=== PATIENT | male | born 1940 | race Caucasian/White ===

== ENCOUNTER 2019-04-06 12:52 | Inpatient (IN) | payer BC, MEDICARE ==
[2019-04-06] MEDS ORDERED: MORPHINE SULFATE 2 MG/ML SYRINGE IVP STA (13:17)
--- NOTE | 2019-04-06 13:18 | ED ---
General Adult HPI - General Chief complaint: Fall Stated complaint: Hip injury Time Seen by Provider: 04/06/19 13:01 Source: patient Mode of arrival: EMS Limitations: physical limitation - History of Present Illness Initial comments: Patient is a 79-year-old male with a history of hypertension who presents with a chief complaint of left hip pain after falling from a barstool while trying to fix his curtains. This happened about noon. The patient states that he thinks he dislocated his hip. He has not had any previous surgeries, no history of hip replacements. Patient states he was unable to walk on it. He has good sensation and strength in the lower extremity. He states that he did hit his head on the tile but takes no blood thinners, did not lose consciousness, complains of no head or neck pain. He denies any other injuries. - Related Data Home Medications Medication Instructions Recorded Confirmed Ergocalciferol (Vitamin D2) 50,000 unit PO FRANK 04/06/19 04/06/19 [Vitamin D2] Losartan Potassium 100 mg PO DAILY 04/06/19 04/06/19 Allergies Allergy/AdvReac Type Severity Reaction Status Date / Time No Known Allergies Allergy Verified 04/06/19 14:06 Review of Systems ROS Statement: Those systems with pertinent positive or pertinent negative responses have been documented in the HPI. ROS Other: All systems not noted in ROS Statement are negative. Musculoskeletal: Reports: arthralgia Past Medical History - Past Family History Father Family Medical History: No Reported History General Exam Limitations: physical limitation General appearance: alert, in no apparent distress Head exam: Present: atraumatic, normocephalic Eye exam: Present: normal appearance ENT exam: Present: normal exam Neck exam: Present: normal inspection Respiratory exam: Present: normal lung sounds bilaterally. Absent: respiratory distress, wheezes Cardiovascular Exam: Present: regular rate, normal rhythm GI/Abdominal exam: Present: soft. Absent: distended, tenderness Rectal exam: Present: deferred Extremities exam: Present: other (Left leg is shortened and externally rotated. Patient has palpable PT pulses bilaterally. Strength and sensation are intact). Absent: full ROM Back exam: Present: normal inspection Neurological exam: Present: alert, oriented X3 Psychiatric exam: Present: normal affect, normal mood Skin exam: Present: warm, dry, intact Course Vital Signs 04/06/19 04/06/19 04/06/19 12:53 15:00 15:40 Temperature 97.8 F 97.9 F 98.7 F Pulse Rate 89 88 Pulse Rate [ 87 Left] Respiratory 16 16 18 Rate Blood Pressure 150/73 144/87 Blood Pressure 161/88 [Left Arm] O2 Sat by Pulse 99 99 Oximetry 04/06/19 16:26 Temperature Pulse Rate 81 Pulse Rate [ Left] Respiratory 18 Rate Blood Pressure 124/78 Blood Pressure [Left Arm] O2 Sat by Pulse 98 Oximetry Medical Decision Making - Medical Decision Making Patient presents with a chief complaint left hip injury. On initial evaluation, vitals are stable, patient is in no acute distress. Exam concerning for a left hip fracture. He'll be evaluated with surgical clearance labs, EKG, x-rays of the chest, pelvis, and left hip. EKG performed at 1330 shows normal sinus rhythm with left axis deviation. Ventricular rate is 87 bpm, no acute signs of ischemia, segment otherwise within normal limits. 2:42 PM Laboratory evaluation of this patient is unremarkable except for a creatinine of 1.69. Case discussed with Dr. Demarco given x-ray findings of an intertrochante danielle fracture of the left femur. Dr. Demarco accepts admission to his service with medicine on consult for medical clearance. 2-D echo ordered. Patient updated on the results, he was agreeable with the care plan. - Lab Data Result diagrams: 04/06/19 13:28 04/06/19 13:28 Lab Results 04/06/19 04/06/19 04/06/19 Range/Units 13:28 13:28 13:28 WBC 14.3 H (3.8-10.6) k/uL RBC 5.12 (4.30-5.90) m/uL Hgb 14.8 (13.0-17.5) gm/dL Hct 46.3 (39.0-53.0) % MCV 90.5 (80.0-100.0) fL MCH 28.9 (25.0-35.0) pg MCHC 32.0 (31.0-37.0) g/dL RDW 14.6 (11.5-15.5) % Plt Count 226 (150-450) k/uL Neutrophils % 82 % Lymphocytes % 12 % Monocytes % 4 % Eosinophils % 2 % Basophils % 0 % Neutrophils # 11.7 H (1.3-7.7) k/uL Lymphocytes # 1.7 (1.0-4.8) k/uL Monocytes # 0.5 (0-1.0) k/uL Eosinophils # 0.2 (0-0.7) k/uL Basophils # 0.0 (0-0.2) k/uL PT 10.5 (9.0-12.0) sec INR 1.0 (<1.2) Sodium 137 (137-145) mmol/L Potassium 4.3 (3.5-5.1) mmol/L Chloride 105 (98-107) mmol/L Carbon Dioxide 21 L (22-30) mmol/L Anion Gap 11 mmol/L BUN 25 H (9-20) mg/dL Creatinine 1.69 H (0.66-1.25) mg/dL Est GFR (CKD-EPI)AfAm 45 (>60 ml/min/1.73 sqM) Est GFR (CKD-EPI)NonAf 39 (>60 ml/min/1.73 sqM) Glucose 133 H (74-99) mg/dL Calcium 8.8 (8.4-10.2) mg/dL Troponin I (0.000-0.034) ng/mL NT-Pro-B Natriuret Pep pg/mL 04/06/19 04/06/19 Range/Units 13:28 13:28 WBC (3.8-10.6) k/uL RBC (4.30-5.90) m/uL Hgb (13.0-17.5) gm/dL Hct (39.0-53.0) % MCV (80.0-100.0) fL MCH (25.0-35.0) pg MCHC (31.0-37.0) g/dL RDW (11.5-15.5) % Plt Count (150-450) k/uL Neutrophils % % Lymphocytes % % Monocytes % % Eosinophils % % Basophils % % Neutrophils # (1.3-7.7) k/uL Lymphocytes # (1.0-4.8) k/uL Monocytes # (0-1.0) k/uL Eosinophils # (0-0.7) k/uL Basophils # (0-0.2) k/uL PT (9.0-12.0) sec INR (<1.2) Sodium (137-145) mmol/L Potassium (3.5-5.1) mmol/L Chloride (98-107) mmol/L Carbon Dioxide (22-30) mmol/L Anion Gap mmol/L BUN (9-20) mg/dL Creatinine (0.66-1.25) mg/dL Est GFR (CKD-EPI)AfAm (>60 ml/min/1.73 sqM) Est GFR (CKD-EPI)NonAf (>60 ml/min/1.73 sqM) Glucose (74-99) mg/dL Calcium (8.4-10.2) mg/dL Troponin I 0.015 (0.000-0.034) ng/mL NT-Pro-B Natriuret Pep 232 pg/mL Disposition Clinical Impression: Hip fracture Disposition: ADMITTED IP TO THIS HOSP Condition: Good Is patient prescribed a controlled substance at d/c from ED?: No Decision to Admit Reason: Admit from EC - Out of Hospital Transfer - Req. Specs Out of Hospital Transfer - Requested Specifics: Other Non-Acute
[2019-04-06 13:42] LABS: Basophils % (A) 0 %; Eosinophils # (A) 0.2 k/uL (0-0.7); Eosinophils % (A) 2 %; HCT 46.3 % (39.0-53.0); HGB 14.8 gm/dL (13.0-17.5); Lymphocytes # (A) 1.7 k/uL (1.0-4.8); Lymphocytes % (A) 12 %; MCH 28.9 pg (25.0-35.0); MCV 90.5 fL (80.0-100.0); Mean Platelet Volume 7.7; Monocytes # (A) 0.5 k/uL (0-1.0); Monocytes % (A) 4 %; Neutrophils # (A) 11.7 k/uL (1.3-7.7); Neutrophils % (A) 82 %; Platelet Count 226 k/uL (150-450); RBC 5.12 m/uL (4.30-5.90); RDW 14.6 % (11.5-15.5); WBC 14.3 k/uL (3.8-10.6)
[2019-04-06 13:49] LABS: Calcium 8.8 mg/dL (8.4-10.2); Potassium 4.3 mmol/L (3.5-5.1)
[2019-04-06 13:51] LABS: Prothrombin Time 10.5 sec (9.0-12.0)
--- NOTE | 2019-04-06 14:29 | XR ---
EXAMINATION TYPE: XR Hip LT and AP Pelvis , 3 VIEWS DATE OF EXAM ORDERED: 04/06/2019 HISTORY: Pain. COMPARISON: None. FINDINGS: There is a trochanteric fracture of the left hip with mild foreshortening. There is been a vulsion of the lesser trochanter. No other pelvic fracture is seen. IMPRESSION: MILDLY FORESHORTENED AND DISPLACED INTERTROCHANTERIC FRACTURE OF THE LEFT HIP. CODE A: INITIAL ENCOUNTER FOR CLOSED FRACTURE.
--- NOTE | 2019-04-06 14:30 | XR ---
EXAMINATION TYPE: XR chest 1V DATE OF EXAM: 04/06/2019 HISTORY: Pain. REFERENCE: NONE. FINDINGS: The heart is enlarged. There is apparent elevation right hemidiaphragm. There is vascular c ongestion without alix edema. Pleural spaces appear clear. IMPRESSION: CARDIOMEGALY AND VASCULAR CONGESTION.
[2019-04-06] MEDS ORDERED: NALOXONE 0.4 MG/ML 1 ML VIAL IV PRN (14:36)
[2019-04-06] MEDS ORDERED: MORPHINE SULFATE 4 MG/ML SYRINGE IV PRN (14:36)
[2019-04-06] MEDS: HYDROcodone/APAP 5-325MG 1 EACH TAB PO PRN (17:14)
--- NOTE | 2019-04-06 20:44 | HP ---
HISTORY AND PHYSICAL DATE OF DICTATION: 04/06/2019. REASON FOR ADMISSION: Left intertrochanteric hip fracture. HISTORY: Mr. Gilmore is a very pleasant 79-year-old male who earlier today was doing some work at his house. He was up on elevated surface and he fell onto his left hip. He had immediate pain in the left hip. Brought to [facility] via ambulance. Workup including x-rays revealed a left displaced intertrochanteric hip fracture. I was notified by the emergency department. He was admitted to my service. MEDICAL HISTORY: Hypertension. SURGICAL HISTORY: Negative. ALLERGIES: No known drug allergies. SOCIAL HISTORY: He is an independent ambulator. Lives with his at home. Denies nicotine or alcohol use. PHYSICAL EXAMINATION: T-max 99.3, blood pressure 148/85, pulse 106, white count 14.3, hemoglobin 14.8, platelets of 226, and his INR is 1.0. He has no pain with palpation range of motion of all long bones and joints with the exception of the left hip. The left hip is flexed and externally rotated. There is no pain with palpation of the left distal femur, knee, tibia, fibula, ankle, or foot. He has intact flexion-extension inversion and eversion of the left foot. He has intact lateral medial plantar and first dorsal webspace sensation in the left foot. He has a palpable posterior tibialis pulse and brisk capillary refill in all digits. X-RAYS: AP pelvis and AP and lateral view left hip shows a 4 part displaced intertrochanteric hip fracture. IMPRESSION: Left displaced intertrochanteric hip fracture. RECOMMENDATIONS: I had a long discussion with Mr. Gilmore. He is a very active independent ambulator. Recommendation was for intramedullary hip screw fixation for his left intertrochanteric hip fracture. He is very healthy. We did have the medical service see him for clearance. We anticipate proceeding with operative intervention for his left hip fracture tomorrow morning. The risks of procedure were discussed in detail. These risks include, but are not limited to risk of infection, nerve damage, bleeding, pain, and a small risk of deep vein thrombosis which could lead to fatal pulmonary embolism. Further risks include periprosthetic fracture and failure of the fracture to heal. All of Mr. Gilmore questions with regards to the procedure were answered to his satisfaction. Appropriate informed consent was obtained. We will keep him n.p.o. after midnight tonight. We will plan to go forward with intramedullary hip screw fixation for his fracture tomorrow morning. MMODL / IJN: [id number] /
--- NOTE | 2019-04-07 01:50 | P.CONS ---
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 Patient was climbing down the caraballo s tool after fixing the curtain and suddenly lost balance and fell on his left hip. Since then patient has been having worsening pain and unable to ambulate without support. Patient denied any dizziness or lightheadedness. No chest pain or shortness of breath. No history of syncope. X-ray of the left hip showed intertrochanteric fracture displaced. Internal medicine service was consulted for medical clearance. BUN 25, creatinine 1.69, WBC 14.5 BNP 232, troponin 2 negative Chest x-ray showed cardiomegaly and mild pulmonary vascular congestion. Review of Systems Constitutional: Patient denies any fever or chills . No generalized weakness or weight loss. Abdomen: Patient denied nausea vomiting and diarrhea and abdominal pain. Cardiovascular: Patient denies any chest pain or short of breath no palpitations. Respiratory: patient denied any cough is from production. No shortness of breath Neurologic: Patient denied any numbness or tingling headache. Musculoskeletal: Patient denies any complaints of joint swelling or deformity. Left hip pain Skin: Negative Psychiatric: Negative Endocrine: No heat or cold intolerance. No recent weight gain. Genitourinary: No dysuria or hematuria. All other 14 point ROS negative except the above Past Medical History Past Medical History: CVA/TIA Additional Past Medical History / Comment(s): Mini-stroke 2008, no complications History of Any Multi-Drug Resistant Organisms: None Reported Past Surgical History: No Surgical Hx Reported Past Anesthesia/Blood Transfusion Reactions: No Reported Reaction Past Psychological History: No Psychological Hx Reported Smoking Status: Former smoker - Past Family History Father Family Medical History: No Reported History Medications and Allergies Home Medications Medication Instructions Recorded Confirmed Type Ergocalciferol (Vitamin D2) 50,000 unit PO FRANK 04/06/19 04/06/19 History [Vitamin D2] Losartan Potassium 100 mg PO DAILY 04/06/19 04/06/19 History Allergies Allergy/AdvReac Type Severity Reaction Status Date / Time No Known Allergies Allergy Verified 04/06/19 14:06 Physical Exam Vitals: Vital Signs Temp Pulse Pulse Resp BP BP Pulse Ox 04/06/19 16:26 81 18 124/78 98 04/06/19 15:40 98.7 F 88 18 144/87 04/06/19 15:00 97.9 F 87 16 161/88 99 04/06/19 12:53 97.8 F 89 16 150/73 99 Intake and Output 04/06/19 04/06/19 04/06/19 06:59 14:59 22:59 Other: Weight 88.451 kg PHYSICAL EXAMINATION: Patient is lying in the bed comfortably, no acute distress, awake alert and oriented.. HEENT: Normocephalic. Neck is supple. Pupils reactive. Nostrils clear. Oral cavity is moist. Ears reveal no drainage. Neck reveals no JVD, carotid bruits, or thyromegaly. CHEST EXAMINATION: Trachea is central. Symmetrical expansion. Lung holloway clear to auscultation and percussion. CARDIAC: Normal S1, S2 with no gallops. No murmurs . Systolic murmur present. ABDOMEN: Soft. Bowel sounds normal. No organomegaly. No abdominal bruits. Extremities: reveal no edema. No clubbing or cyanosis Neurologically awake, alert, oriented x3 with well-coordinated movements. No focal deficits noted Skin: No rash or skin lesions. Psychiatric: Coperative. Nonsuicidal Musculoskeletal: No joint swelling or deformity. Tenderness of the left trochanter. Results CBC & Chem 7: 04/06/19 13:28 04/06/19 13:28 Labs: Abnormal Lab Results - Last 24 Hours (Table) 04/06/19 04/06/19 Range/Units 13:28 13:28 WBC 14.3 H (3.8-10.6) k/uL Neutrophils # 11.7 H (1.3-7.7) k/uL Carbon Dioxide 21 L (22-30) mmol/L BUN 25 H (9-20) mg/dL Creatinine 1.69 H (0.66-1.25) mg/dL Glucose 133 H (74-99) mg/dL Assessment and Plan Assessment: Left intertrochanteric displaced fracture status post mechanical fall. Mild pulmonary vascular congestion. BNP is not elevated no leg swelling. Unlikely CHF. Hypertension fairly controlled. Will hold losartan due to elevated creatinine level. Acute on Chronic kidney disease stage III. Baseline creatinine not known. History of CVA/TIA with no residual weakness. Vitamin D deficiency DVT prophylaxis Plan: Patient will be continued on telemetry monitoring. 2-D echocardiogram was ordered to assess left ventricular systolic function and for any valvular abnormalities.. Patient will be started on perioperative beta blockers. Gentle hydration and follow closely. Patient does not have any active symptoms of chest pain or shortness of breath. Repeat CBC and BMP was ordered. Patient is at low to intermediate risk for moderate risk orthopedic surgery. We will continue to follow. Thank you for your consult. Time with Patient: Greater than 30
[2019-04-07] MEDS: METOPROLOL TARTRATE 25 MG TAB PO SCH ×2 (06:47→22:18)
[2019-04-07 07:30] LABS: Basophils % (A) 0 %; Eosinophils # (A) 0.1 k/uL (0-0.7); Eosinophils % (A) 1 %; HCT 42.6 % (39.0-53.0); HGB 13.6 gm/dL (13.0-17.5); Lymphocytes % (A) 9 %; MCH 29.1 pg (25.0-35.0); MCHC 31.9 g/dL (31.0-37.0); MCV 91.4 fL (80.0-100.0); Mean Platelet Volume 6.6; Monocytes # (A) 0.8 k/uL (0-1.0); Monocytes % (A) 7 %; Neutrophils # (A) 9.6 k/uL (1.3-7.7); Neutrophils % (A) 82 %; Platelet Count 186 k/uL (150-450); RBC 4.66 m/uL (4.30-5.90); RDW 14.1 % (11.5-15.5); WBC 11.7 k/uL (3.8-10.6)
[2019-04-07 07:43] LABS: Calcium 8.4 mg/dL (8.4-10.2); Potassium 4.3 mmol/L (3.5-5.1)
--- NOTE | 2019-04-07 08:11 | ECHOF ---
Referral Reason:Pre-operative MEASUREMENTS -------- HEIGHT: 180.3 cm WEIGHT: 88.5 kg BP: RVIDd: 2.8 cm (< 3.3) IVSd: 1.4 cm (0.6 - 1.1) LVIDd: 3.6 cm (3.9 - 5.3) LVPWd: 1.2 cm (0.6 - 1.1) IVSs: 1.6 cm LVIDs: 3.0 cm LVPWs: 1.7 cm LA Diam: 3.7 cm (2.7 - 3.8) Ao Diam: 3.2 cm (2.0 - 3.7) MV EXCURSION: 18.547 mm (> 18.000) MV EF SLOPE: 52 mm/s (70 - 150) EPSS: 0.6 cm MV E Jose F: 1.00 m/s MV DecT: 228 ms MV A Jose F: 0.78 m/s MV E/A Ratio: 1.29 AV maxP.06 mmHg AV meanP.34 mmHg FINDINGS -------- Sinus rhythm. This was a technically difficult study with suboptimal views. The left ventricular size is normal. There is moderate concentric left ventricular hypertrophy. O verall left ventricular systolic function is mildly impaired with, an EF between 45 - 50 %. The right ventricle is normal in size. The left atrium is normal in size. The right atrium is normal in size. Lumason used Interatrial and interventricular septum intact. There is moderate aortic valve sclerosis. There is moderate aortic stenosis present. Peak/mean gr adient across the Aortic Valve is 52.06mmHg / 34.34mmHg. The mitral valve is normal. The tricuspid valve was not well visualized. There is no pulmonic regurgitation present. The aortic root size is normal. IVC Not well visulized. There is no pericardial effusion. CONCLUSIONS -------- 1. Sinus rhythm. 2. This was a technically difficult study with suboptimal views. 3. The left ventricular size is normal. 4. There is moderate concentric left ventricular hypertrophy. 5. Overall left ventricular systolic function is mildly impaired with, an EF between 45 - 50 %. 6. The right ventricle is normal in size. 7. The left atrium is normal in size. 8. The right atrium is normal in size. 9. Lumason used 10. Interatrial and interventricular septum intact. 11. There is moderate aortic valve sclerosis. 12. There is moderate aortic stenosis present. 13. Peak/mean gradient across the Aortic Valve is 52.06mmHg / 34.34mmHg. 14. The mitral valve is normal. 15. The tricuspid valve was not well visualized. 16. There is no pulmonic regurgitation present. 17. The aortic root size is normal. 18. IVC Not well visulized. 19. There is no pericardial effusion. PROJECT ARCHIVIST: Amada Lassiter RDCS
[2019-04-07] MEDS ORDERED: SODIUM CHLORIDE 0.9% 1,000 ML IV ONE (10:07)
[2019-04-07] MEDS ORDERED: GLYCOPYRROLATE 0.2 MG/ML 2 ML VIAL ONE (10:07)
[2019-04-07] MEDS ORDERED: PHENYLEPHRINE-0.9% NACL SYG 1 MG/10 ML SYRINGE ONE (10:07)
[2019-04-07] MEDS ORDERED: LIDOCAINE 1% INJ 10MG/ML (20 ML MDV) ONE (10:07)
[2019-04-07] MEDS ORDERED: PROPOFOL 10 MG/ML 20 ML VIAL IV ONE (10:07)
[2019-04-07] MEDS ORDERED: NEOSTIGMINE 1 MG/ML 10 ML VIAL ONE (10:07)
[2019-04-07] MEDS ORDERED: SUCCINYLCHOLINE CHLORIDE 100 MG/5 ML SYR IV ONE (10:07)
[2019-04-07] MEDS ORDERED: ROCURONIUM BROMIDE 10 MG/ML 10 ML VIAL IV ONE (10:07)
[2019-04-07] MEDS ORDERED: KETAMINE 10 MG/ML 20 ML VIAL ONE (10:07)
[2019-04-07] MEDS ORDERED: fentaNYL (PF) 50 MCG/ML 2 ML AMP ONE (10:07)
[2019-04-07] MEDS ORDERED: MIDAZOLAM 2 MG/2 ML VIAL ONE (10:07)
--- NOTE | 2019-04-07 11:23 | FL ---
FLUOROSCOPY 136 seconds of fluoroscopy time were utilized during I am pinning of the left hip. 2 images document the procedure.
[2019-04-07] MEDS ORDERED: HYDROmorphone 0.5 MG/0.5 ML SYRINGE IVP PRN ×3 (11:34)
[2019-04-07] MEDS ORDERED: ONDANSETRON 4 MG/2 ML VIAL IVP PRN (11:34)
[2019-04-07] MEDS ORDERED: hydrOXYzine PAMOATE 25 MG CAP PO PRN (11:34)
[2019-04-07] MEDS: HYDROmorphone 1 MG/ML 1 ML SYRINGE IVP ONE ×2 (11:36→11:45)
--- NOTE | 2019-04-07 12:51 | OP ---
OPERATIVE REPORT DATE OF PROCEDURE: 04/07/2019. PRE-PROCEDURE DIAGNOSIS: Left displaced intertrochanteric hip fracture. POSTOPERATIVE DIAGNOSIS: Left displaced intertrochanteric hip fracture. PROCEDURE PERFORMED: Left intramedullary hip screw fixation for left intertrochanteric hip fracture. SURGEON: Chele Demarco M.D. ANESTHESIA: General endotracheal. ESTIMATED BLOOD LOSS: 100 mL. TOURNIQUET: None. DRAINS: None. COMPLICATIONS: None apparent. DISPOSITION: Postanesthesia care unit. INDICATIONS: Pato is a very pleasant 79-year-old male who fell off of a stool yesterday onto his left hip. He had sustained a left intertrochanteric hip fracture. Recommendation was for intramedullary hip screw fixation for his intertrochanteric hip fracture. He would like to proceed with operative intervention. The risks were explained to the patient which include, but are not limited to risk of infection, nerve damage, bleeding, pain, and a small risk of deep vein thrombosis which could lead to fatal pulmonary embolism. Further risks include lack of healing of the fracture or periimplant fracture. All of Pato's questions with regards to the procedure were answered to his satisfaction. Appropriate informed consent was obtained. DESCRIPTION OF THE PROCEDURE: Patient identified in preoperative holding area. Surgical site was marked by both the patient and myself. He was given 2 g of Ancef IV for prophylactic purposes. He was then transported to the operative suite. He was placed supine on the operative table. General anesthetic was then administered and dosed per the anesthesia without apparent complication. He was then placed onto the fracture table well-padded in preparation for surgery. The fracture was then reduced with traction and rotation. The reduction was confirmed with fluoroscopic imaging. The patient's left lower extremity was then prepped and draped in usual sterile fashion. Standard surgical pause undertaken to ensure that we were operating the correct site and that appropriate preop antibiotics were given. All staff were in agreement we proceeded. Fluoroscopy was then brought in. Approximate 3 cm incision from the tip of the greater trochanter proximally in line with the femoral shaft was then made with a 10 blade scalpel. Dissection carried down sharply to the tensor fascia. The tensor fascia was then incised in line with the incision. The threaded guide pin was then placed on the medial aspect of the greater trochanter and then advanced down the center of the femoral shaft. Again this was confirmed with fluoroscopic imaging. I then over reamed to the level of the lesser trochanter to allow for acceptance of the intramedullary nail. The threaded guide pin was then replaced with a ball-tip guidewire. Again placement in the intramedullary canal was confirmed with fluoroscopic imaging. I then proceeded to ream the femoral canal, started with a 9 mm reamer and incrementally increased up to a 13 mm reamer. I then had the electroplating sales representative open a Lilly 11 mm x 180 mm x 125 degree gamma nail. This was then assembled on the back table by the director surgical. The Gamma nail was then inserted over the ball-tipped guidewire. The ball-tipped guidewire was removed. I then proceeded with placement of the hip screw. A 2nd small incision was then made on the lateral thigh. The threaded guide pin was then advanced into the center of the end of the deep into the center of the femoral head on both AP and lateral views. The tip-apex distance was appropriate. I then measured for length. The reamer was set to 105 mm. I then over-reamed the threaded guide pin under fluoroscopic imaging. I then had the electroplating sales representative open 105 mm x 10 mm partially-threaded hip screw. This was then advanced over the threaded guide pin deep into the center femoral head. He had very good bone quality. The hip screw had excellent purchase in the femoral head bone. The tip-apex distance was appropriate. I then placed a set screw. The set screw was then tightened down fully and then backed off 1/4 turn to allow for compression of the fracture site. I then proceeded to place the distal locking screw. A third small stab incision was made on the lateral thigh. A 5 mm x 37.5 mm locking screw was then placed through the nail statically through the distal hole of the nail. Again, its placement was confirmed through the nail and length was confirmed with fluoroscopic imaging. At this point, final images were taken. The nail was within the intramedullary canal. The distal screw was of appropriate length and through the nail. The hip screw was placed deep into the center of the femoral head on both AP and lateral views. The tip- apex distance was appropriate. At this point time no further work was deemed necessary. The insertion jig was removed. The wounds were thoroughly irrigated with sterile saline solution with antibiotic added. The tensor fascia was closed with 0-Vicryl interrupted suture. The subcutaneous tissue was closed with 2-0 Vicryl interrupted suture. The skin was closed with stainless steel devin. Sterile compressive dressing was then applied. All sponge and needle counts were deemed correct prior to closure. The patient tolerated the procedure without apparent complication. He was transferred to the recovery room in stable condition. NARAYAN / VIRIDIANA: [id number] /
[2019-04-07] MEDS: LACTATED RINGERS 1,000 ML IV SCH ×2 (13:28→22:41)
[2019-04-07] MEDS: ceFAZolin IN SWFI 2 GM/20 ML SYRINGE IVP SCH (15:37)
[2019-04-07] MEDS: HYDROcodone/APAP 5-325MG 1 EACH TAB PO PRN ×2 (18:14→22:17)
[2019-04-07] MEDS: SENNOSIDES-DOCUSATE SODIUM 1 EACH TAB PO SCH (22:18)
[2019-04-08] MEDS: ceFAZolin IN SWFI 2 GM/20 ML SYRINGE IVP SCH (00:02)
--- NOTE | 2019-04-08 00:05 | P.PN ---
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 Patient was climbing down the caraballo stool after fixing the curtain and suddenly lost balance and fell on his left hip. Since then patient has been having worsening pain and unable to ambulate without support. Patient denied any dizziness or lightheadedness. No chest pain or shortness of breath. No history of syncope. X-ray of the left hip showed intertrochanteric fracture displaced. Internal medicine service was consulted for medical clearance. BUN 25, creatinine 1.69, WBC 14.5 BNP 232, troponin 2 negative Chest x-ray showed cardiomegaly and mild pulmonary vascular congestion. 04/07/2019 Patient is status post left intramedullary hip screw fixation for left intertrochanteric fracture. Postoperative day 0 Currently blood pressure is controlled. No worsening pain. No chest pain or shortness of breath. 2-D echocardiogram showed ejection fraction 40-45% with mildly reduced systolic function. Moderate aortic sclerosis and moderate aortic stenosis. Patient will be continued on metoprolol and losartan. Creatinine level slightly improved to 1.58. Patient does have underlying CK D stage III. Patient will need follow-up with cardiology and nephrology as an outpatient. Current medications reviewed. Objective - Vital Signs Vital signs: Vital Signs Temp 98 F 04/07/19 12:30 Pulse 99 04/07/19 14:00 Resp 14 04/07/19 12:30 BP 128/83 04/07/19 14:00 Pulse Ox 90 L 04/07/19 12:30 Intake & Output 04/06/19 04/07/19 04/07/19 18:59 06:59 18:59 Intake Total 807 403 0381 Output Total 700 100 Balance 240 -450 1250 Weight 88.451 kg Intake: IV 650 Intake, IV Titration 700 Amount Lactated Ringers 1,000 ml 300 @ 100 mls/hr IV .Q10H [facility] Rx#:[id number] Sodium Chloride 0.9% 1, 400 000 ml @ 0 mls/hr IV .STK -MED ONE Rx#:[id number] Oral 240 250 Output: Urine 700 Estimated Blood Loss 100 Other: Voiding Method Urinal Urinal # Voids 1 - Exam PHYSICAL EXAMINATION: Patient is lying in the bed comfortably, no acute distress, awake alert and oriented.. HEENT: Normocephalic. Neck is supple. Pupils reactive. Nostrils clear. Oral cavity is moist. Ears reveal no drainage. Neck reveals no JVD, carotid bruits, or thyromegaly. CHEST EXAMINATION: Trachea is central. Symmetrical expansion. Lung holloway clear to auscultation and percussion. CARDIAC: Normal S1, S2 with no gallops. No murmurs . Systolic murmur present. ABDOMEN: Soft. Bowel sounds normal. No organomegaly. No abdominal bruits. Extremities: reveal no edema. No clubbing or cyanosis Neurologically awake, alert, oriented x3 with well-coordinated movements. No focal deficits noted Skin: No rash or skin lesions. Psychiatric: Coperative. Nonsuicidal Musculoskeletal: No joint swelling or deformity. Tenderness of the left trochanter. - Labs CBC & Chem 7: 04/07/19 06:51 04/07/19 06:51 Labs: Abnormal Lab Results - Last 24 Hours (Table) 04/07/19 04/07/19 Range/Units 06:51 06:51 WBC 11.7 H (3.8-10.6) k/uL Neutrophils # 9.6 H (1.3-7.7) k/uL Sodium 136 L (137-145) mmol/L Carbon Dioxide 21 L (22-30) mmol/L BUN 25 H (9-20) mg/dL Creatinine 1.58 H (0.66-1.25) mg/dL Glucose 127 H (74-99) mg/dL Assessment and Plan Assessment: Left intertrochanteric displaced fracture status post mechanical fall. Status post intramedullary hip screw fixation. Mild pulmonary vascular congestion. BNP is not elevated no leg swelling. Unlikely CHF. Chronic CHF with systolic dysfunction. Hypertension fairly controlled. Will hold losartan due to elevated creatinine level. Acute on Chronic kidney disease stage III. Baseline creatinine not known. History of CVA/TIA with no residual weakness. Vitamin D deficiency DVT prophylaxis Plan: Patient will be continued on telemetry monitoring. 2-D echocardiogram was ordered to assess left ventricular systolic function and for any valvular abnormalities was reviewed... Patient will be started on perioperative beta blockers. Gentle hydration and follow closely. Patient does not have any active symptoms of chest pain or shortness of breath. Repeat CBC and BMP was ordered. Patient is at low to intermediate risk for moderate risk orthopedic surgery. We will continue to follow. Thank you for your consult. Time with Patient: Greater than 30
[2019-04-08] MEDS: HYDROcodone/APAP 5-325MG 1 EACH TAB PO PRN ×3 (02:37→20:41)
[2019-04-08 03:25] LABS: Glucose,Whole Blood 157 mg/dL (75-99)
[2019-04-08] MEDS: LACTATED RINGERS 1,000 ML IV SCH (09:13)
[2019-04-08] MEDS: LOSARTAN 50 MG TAB PO SCH (09:14)
[2019-04-08] MEDS: ASPIRIN 325 MG TAB PO SCH ×2 (09:14→20:41)
[2019-04-08] MEDS: METOPROLOL TARTRATE 25 MG TAB PO SCH ×2 (09:14→20:41)
[2019-04-08 09:29] LABS: Basophils % (A) 0 %; Eosinophils % (A) 0 %; HCT 37.3 % (39.0-53.0); HGB 11.8 gm/dL (13.0-17.5); Lymphocytes # (A) 0.8 k/uL (1.0-4.8); Lymphocytes % (A) 6 %; MCH 28.9 pg (25.0-35.0); MCHC 31.8 g/dL (31.0-37.0); MCV 91.1 fL (80.0-100.0); Mean Platelet Volume 8.2; Monocytes # (A) 0.6 k/uL (0-1.0); Monocytes % (A) 4 %; Neutrophils # (A) 13.1 k/uL (1.3-7.7); Neutrophils % (A) 89 %; Platelet Count 153 k/uL (150-450); RBC 4.09 m/uL (4.30-5.90); WBC 14.7 k/uL (3.8-10.6)
--- NOTE | 2019-04-08 12:29 | P.PN ---
Subjective Progress Note Date: 04/08/19 Principal diagnosis: Left IT fracture Patient is seen at bedside this morning. He is postop day #1 from IM hip screw/IT nail for left hip fracture. He has pain at the surgical site as expected but denies any new complaints. He denies numbness, tingling or calf pain. Review of systems is negative for fever, chills, chest pain, shortness of breath or other Objective - Vital Signs Vital signs: Vital Signs Temp 98.8 F 04/08/19 07:00 Pulse 99 04/08/19 07:00 Resp 14 04/08/19 07:00 BP 113/70 04/08/19 07:00 Pulse Ox 96 04/08/19 07:00 Intake & Output 04/07/19 04/08/19 04/08/19 18:59 06:59 18:59 Intake Total 1350 236 Output Total 350 395 350 Balance 1000 -395 -114 Intake: IV 650 Intake, IV Titration 700 Amount Lactated Ringers 1,000 ml 300 @ 50 mls/hr IV .Q20H [facility] Rx#:[id number] Sodium Chloride 0.9% 1, 400 000 ml @ 0 mls/hr IV .STK -MED ONE Rx#:[id number] Oral 236 Output: Urine 250 395 350 Estimated Blood Loss 100 Other: Voiding Method Urinal # Voids 1 1 1 - Exam Inspection reveals a benign surgical wound. There is no active bleeding or drainage. Neurovascular status is intact throughout the lower extremity with motor and sensation fully intact. Calf is soft and nontender. 2+ dorsalis pedis pulse and less than 2 second cap refill is present. - Constitutional General appearance: Present: no acute distress - Labs CBC & Chem 7: 04/08/19 07:55 04/07/19 06:51 Labs: Abnormal Lab Results - Last 24 Hours (Table) 04/08/19 04/08/19 Range/Units 03:05 07:55 WBC 14.7 H (3.8-10.6) k/uL RBC 4.09 L (4.30-5.90) m/uL Hgb 11.8 L (13.0-17.5) gm/dL Hct 37.3 L (39.0-53.0) % Neutrophils # 13.1 H (1.3-7.7) k/uL Lymphocytes # 0.8 L (1.0-4.8) k/uL POC Glucose (mg/dL) 157 H (75-99) mg/dL Assessment and Plan (1) Hip fracture Narrative/Plan: He will continue with routine postop orthopedic protocol including pain ma nagement, wound care, PT, DVT prophylaxis and medical management. Expect that he will transfer to rehab in next 1-2 days Current Visit: Yes Status: Acute Priority: Medium Code(s): S72.009A - FR ACTURE OF UNSP PART OF NECK OF UNSP FEMUR, INIT SNOMED Code(s): 170292245 Time with Patient: Less than 30
[2019-04-08] MEDS: SENNOSIDES-DOCUSATE SODIUM 1 EACH TAB PO SCH (20:40)
[2019-04-09] MEDS: LACTATED RINGERS 1,000 ML IV SCH (05:19)
[2019-04-09] MEDS: HYDROcodone/APAP 5-325MG 1 EACH TAB PO PRN ×2 (07:03→16:06)
--- NOTE | 2019-04-09 07:52 | PN ---
PROGRESS NOTE DATE OF SERVICE: 04/08/2019 This 79-year-old gentleman admitted with left hip fracture underwent intramedullary hip screw fixation. PT/OT evaluating the patient. No chest pain. No palpitations. No fever. EXAM: Alert and oriented x3. Pulse is 102. Blood pressure 105/60, respiration 16, temperature 98.1, pulse ox 98% on room air. HEENT: Conjunctivae normal. NECK: No jugular venous distention. CARDIOVASCULAR: S1, S2 muffled. RESPIRATION: Breath sounds diminished in the bases. A few scattered rhonchi. No crackles. ABDOMEN is soft, nontender. LEGS: Status post surgery. CENTRAL NERVOUS SYSTEM: No focal deficits. LAB STUDIES: WBC 14.7, creatinine is 1.2. Sodium 136. ASSESSMENT: 1. Left hip fracture status post intramedullary hip screw fixation. 2. Increased WBC, possibly reactive. 3. Mild pulmonary vascular congestion. 4. History of chronic congestive heart failure with chronic systolic dysfunction. 5. Hypertension, fairly controlled. 6. Gait dysfunction. 7. Chronic kidney stage III. 8. History of cerebrovascular accident, transient ischemic attack with no residual weakness. 9. Vitamin D deficiency. 10.Deep vein thrombosis prophylaxis. 11.Hyponatremia, mild. RECOMMENDATIONS AND DISCUSSION: In this 79-year-old gentleman who presented with multiple complex medical issues, at this time, I recommend to continue current medications, management and symptomatic treatment. Also recommend possible PT/OT evaluation and possible ECF rehab also. Repeat labs have been recommended. Otherwise, further recommendations to follow. See orders for further details. MMODL / IJN: [id number] /
[2019-04-09 08:09] LABS: Basophils % (A) 0 %; Eosinophils # (A) 0.2 k/uL (0-0.7); Eosinophils % (A) 1 %; HCT 34.3 % (39.0-53.0); HGB 10.9 gm/dL (13.0-17.5); Lymphocytes # (A) 0.8 k/uL (1.0-4.8); Lymphocytes % (A) 6 %; MCH 28.6 pg (25.0-35.0); MCHC 31.7 g/dL (31.0-37.0); MCV 90.2 fL (80.0-100.0); Mean Platelet Volume 7.4; Monocytes # (A) 0.7 k/uL (0-1.0); Monocytes % (A) 6 %; Neutrophils # (A) 10.3 k/uL (1.3-7.7); Neutrophils % (A) 86 %; Platelet Count 148 k/uL (150-450); RDW 14.2 % (11.5-15.5)
[2019-04-09] MEDS: LOSARTAN 50 MG TAB PO SCH (08:30)
[2019-04-09] MEDS: ASPIRIN 325 MG TAB PO SCH ×2 (08:30→20:35)
[2019-04-09] MEDS: METOPROLOL TARTRATE 25 MG TAB PO SCH ×2 (08:31→20:35)
[2019-04-09 09:44] LABS: Calcium 8.2 mg/dL (8.4-10.2); Potassium 4.7 mmol/L (3.5-5.1)
--- NOTE | 2019-04-09 10:01 | P.DS ---
Providers Date of admission: 04/06/19 14:36 Expected date of discharge: 04/09/19 Attending physician: Chele Demarco Consults: 04/06/19 14:36 Consult Physician Stat Consulting Provider: Alen Dowd Consult Reason/Comments: medical clearance Do you want consulting provider notified?: Yes Primary care physician: Physician Nonstaff - Discharge Diagnosis(es) (1) Hip fracture Patient was admitted to the OR on 04/06/2019 to undergo a left IM hip screw IT nail for left hip fracture. He desired to proceed with elective surgery after given informed consent. He underwent the above procedure which he tolerated well without complication. Postoperative hospital course has remained without complication. On day of discharge he is afebrile, vital signs stable, labs wi thin acceptable ranges, tolerating by mouth meds and diet, voiding without difficulty, positive flatus, denies abdominal pain or calf pain, pain is controlled on oral pain medication and has no new complaints. Wound is benign, neurovascular status is intact, calf is soft and nontender, abdomen soft and nontender. Review of systems is negative for numbness, tingling, fever, chills, chest pain, shortness breath, nausea, vomiting, dizziness, headaches, slurred speech or other. Current Visit: Yes Status: Acute Priority: Medium Procedures: Left IM hip screw Patient Condition at Discharge: Good Plan - Discharge Summary Discharge Rx Participant: Yes New Discharge Prescriptions: New Aspirin 325 mg PO BID #60 tab Docusate [Colace] 100 mg PO BID #60 capsule HYDROcodone/APAP 5-325MG [[place] 5-325] 1 tab PO Q4HR PRN #42 tab PRN Reason: Pain No Action Ergocalciferol (Vitamin D2) [Vitamin D2] 50,000 unit PO FRANK Losartan Potassium 100 mg PO DAILY Discharge Medication List Ergocalciferol (Vitamin D2) [Vitamin D2] 50,000 unit PO FRANK 04/06/19 [History] Losartan Potassium 100 mg PO DAILY 04/06/19 [History] Aspirin 325 mg PO BID #60 tab 04/09/19 [Rx] Docusate [Colace] 100 mg PO BID #60 capsule 04/09/19 [Rx] HYDROcodone/APAP 5-325MG [[place] 5-325] 1 tab PO Q4HR PRN #42 tab 04/09/19 [Rx] Follow up Appointment(s)/Referral(s): Nonstaff,Physician [Primary Care Provider] - 1-2 days Chele Demarco MD [STAFF PHYSICIAN] - 10 Days Activity/Diet/Wound Care/Special Instructions: TDWB keep wound clean and dry take meds as directed may shower in 3 days if no bleeding F/U with Dr. Demarco in office Discharge Disposition: TRANSFER TO SNF/F
[2019-04-09] MEDS ORDERED: MAGNESIUM HYDROXIDE 2,400 MG/10 ML CUP PO PRN (12:38)
--- NOTE | 2019-04-09 20:18 | PN ---
PROGRESS NOTE DATE OF SERVICE: 04/09/2019 This 79-year-old gentleman admitted after left hip fracture had surgery. The patient is improving significantly. ECF rehab is being planned. No chest pain. No palpitations. No fever. On exam, alert and oriented x3. Pulse 108, blood pressure 150/75, respiration 16, temperature 98.2, pulse ox 97% on room air. HEENT: Conjunctivae normal. Oral mucosa moist. NECK: No jugular venous distention. No carotid bruit. No lymph node enlargement. CARDIOVASCULAR SYSTEM: S1, S2 muffled. RESPIRATORY SYSTEM: Breath sounds diminished at the bases. A few scattered rhonchi. No crackles. ABDOMEN: Soft, non-tender. LEGS: No edema. No swelling. NERVOUS SYSTEM: No focal deficit. LABS: WBC 12, hemoglobin 10.9, sodium 137, potassium 4.7, creatinine 1.47. ASSESSMENT: 1. Left hip fracture, status post intramedullary hip screw fixation. 2. Increased white count, possibly reactive. 3. Mild pulmonary vascular congestion. 4. History of chronic congestive heart failure with chronic systolic dysfunction. 5. Hypertension, fairly controlled. 6. Gait dysfunction. 7. Chronic kidney disease, stage III. 8. History of cerebrovascular accident, transient ischemic attack with no residual weakness. 9. Vitamin D deficiency. 10.Deep venous thrombosis prophylaxis. 11.Hyponatremia, mild. RECOMMENDATIONS AND DISCUSSION: I recommend to continue current medications, continue with the monitoring, symptomatic treatment. I would also recommend CBC, BMP in 2-3 days in ECF. Continue to monitor. I also recommend resuming the home medications. Medication reconciliation has been done. Recommend close followup with the primary physician in the outpatient setting. Further recommendations to follow. MMODL / IJN: [id number] /
[2019-04-09] MEDS: SENNOSIDES-DOCUSATE SODIUM 1 EACH TAB PO SCH (20:35)
[2019-04-10] MEDS: LACTATED RINGERS 1,000 ML IV SCH ×2 (02:30→19:45)
[2019-04-10] MEDS: HYDROcodone/APAP 5-325MG 1 EACH TAB PO PRN ×2 (04:43→20:55)
[2019-04-10] MEDS: LOSARTAN 50 MG TAB PO SCH (09:37)
[2019-04-10] MEDS: METOPROLOL TARTRATE 25 MG TAB PO SCH ×2 (09:37→20:52)
[2019-04-10] MEDS: ASPIRIN 325 MG TAB PO SCH ×2 (09:37→20:52)
--- NOTE | 2019-04-10 13:39 | P.PN ---
Subjective Progress Note Date: 04/10/19 Principal diagnosis: Left IT fracture Patient is seen at bedside this morning. He is postop day #3 from IM hip screw/IT nail for left hip fracture. He has minimal pain at the surgical site as expected but denies any new complaints. He denies numbness, tingling or calf pain. Review of systems is negative for fever, chills, chest pain, shortness of breath or other Objective - Vital Signs Vital signs: Vital Signs Temp 97.5 F L 04/10/19 07:57 Pulse 113 H 04/10/19 09:36 Resp 17 04/10/19 07:57 BP 120/67 04/10/19 09:36 Pulse Ox 98 04/10/19 09:36 Intake & Output 04/09/19 04/10/19 04/10/19 18:59 06:59 18:59 Intake Total 240 880 760 Balance 240 880 760 Intake: Intake, IV Titration 400 Amount Lactated Ringers 1,000 ml 400 @ 50 mls/hr IV .Q20H [facility] Rx#:[id number] Oral 240 480 760 Other: Voiding Method Toilet # Voids 3 1 1 # Bowel Movements 1 - Exam Inspection reveals a benign surgical wound. There is no active bleeding or drainage. Neurovascular status is intact throughout the lower extremity with motor and sensation fully intact. Calf is soft and nontender. 2+ dorsalis pedis pulse and less than 2 second cap refill is present. - Constitutional General appearance: Present: no acute distress - Labs CBC & Chem 7: 04/09/19 07:50 04/09/19 07:46 Assessment and Plan (1) Hip fracture Narrative/Plan: He will continue with routine postop orthopedic protocol including pain management, wound care, PT, DVT prophylaxis and medical management. Expect that he will transfer to rehab in next 1-2 days Current Visit: Yes Status: Acute Priority: Medium Code(s): S72.009A - FRACTURE OF UNSP PART OF NECK OF UNSP FEMUR, INIT SNOMED Code(s): 732937334 Time with Patient: Less than 30
[2019-04-10] MEDS: SENNOSIDES-DOCUSATE SODIUM 1 EACH TAB PO SCH (20:52)
[2019-04-11] MEDS: HYDROcodone/APAP 5-325MG 1 EACH TAB PO PRN ×3 (05:24→22:01)
--- NOTE | 2019-04-11 08:20 | PN ---
PROGRESS NOTE DATE OF SERVICE: 04/10/2019. This 79 -year-old gentleman who was admitted with left hip fracture also had increased WBC, possibly reactive. Orthopedics following the patient closely. ECF rehab is being also planned at this time. No chest pain. No palpitations. No fever. EXAM: Alert and oriented x3. The pulse is 110, blood pressure 140/77, respirations 16, temperature 98.2, pulse ox 98% on room air. HEENT: Conjunctivae normal. NECK: No JVD. CARDIOVASCULAR: S1, S2 muffled. RESPIRATION: Breath sounds diminished at the bases. A few scattered rhonchi and crackles. ABDOMEN is soft, nontender. LEGS status post surgery. NERVOUS SYSTEM: No focal deficits. LAB STUDIES: WBC 12, hemoglobin 10.9, sodium 137, potassium 4.7, creatinine is 1.47. ASSESSMENT: 1. Left hip fracture status post intramedullary hip screw fixation. 2. Increased WBC possibly reactive. 3. Mild pulmonary vascular congestion. 4. History of chronic congestive heart failure with chronic systolic dysfunction. 5. Hypertension, fairly controlled. 6. Gait dysfunction, chronic kidney disease stage III. 7. History of cerebrovascular accident/ transient ischemic attack with no residual weakness. 8. Vitamin D deficiency. 9. Deep vein thrombosis prophylaxis. 10.Hyponatremia mild. RECOMMENDATIONS AND DISCUSSION: Recommend to continue current medication, continue symptomatic treatment. Otherwise, I would recommend continue the current medications. ECF rehab per Case Management, child protective services social worker. Further recommendations to follow. MMODL / IJN: [id number] /
--- NOTE | 2019-04-11 08:35 | P.PN ---
Subjective Progress Note Date: 04/11/19 This is a 79-year-old male who is status post intramedullary hip screw fixation of the left hip. This is postoperative day #4. Patient states that his pain is well controlled. Patient denies any new symptoms or complaints. Patient denies any fever/chills, numbness, weakness, tingling, abdominal pain, shortness of breath or chest pain. Objective - Vital Signs Vital signs: Vital Signs Temp 97.7 F 04/11/19 07:23 Pulse 118 H 04/11/19 07:23 Resp 16 04/11/19 07:23 BP 132/80 04/11/19 07:23 Pulse Ox 96 04/11/19 07:23 Intake & Output 04/10/19 04/11/19 04/11/19 18:59 06:59 18:59 Intake Total 760 Balance 760 Intake: Oral 760 Other: Voiding Method Toilet Toilet Urinal # Voids 1 1 # Bowel Movements 1 - Exam Vital signs are stable. Patient is in no acute distress and is alert and orie nted 3. Calf is soft and nontender to palpation. Dressing is clean, dry, and intact. Patient has full foot and ankle motion without pain or difficulty. Neurovascular status and circulatory status are intact. - Labs CBC & Chem 7: 04/09/19 07:50 04/09/19 07:46 Assessment and Plan (1) Intertrochanteric fracture of left hip Current Visit: Yes Status: Acute Code(s): S72.142A - DISPLACED INTERTROCHANTERIC FRACTURE OF LEFT FEMUR, INIT SNOMED Code(s): 908673055 (2) Hip fracture Current Visit: Yes Status: Acute Priority: Medium Code(s): S72.009A - FRACTURE OF UNSP PART OF NECK OF UNSP FEMUR, INIT SNOMED Code(s): 858863938 Plan: Continue routine postop care and pain control. Continue anticoagulation with aspirin. Toe-touch weightbearing to the left lower extremity with a walker. Daily dressing changes. Appreciate input from medicine. Anticipate discharge to [facility] tomorrow.
[2019-04-11] MEDS: LACTATED RINGERS 1,000 ML IV SCH (08:52)
[2019-04-11] MEDS: ASPIRIN 325 MG TAB PO SCH ×2 (08:54→21:52)
[2019-04-11] MEDS: METOPROLOL TARTRATE 25 MG TAB PO SCH ×2 (08:54→21:53)
[2019-04-11] MEDS: LOSARTAN 50 MG TAB PO SCH (08:54)
[2019-04-11 18:46] LABS: Appearance,Urine Clear (Clear); Bilirubin,Urine Negative (Negative); Blood,Urine Trace (Negative); Color,Urine Light Yellow; Glucose,Urine (UA) Negative (Negative); Ketones,Urine Negative (Negative); Leukocyte Esterase,Urine Negative (Negative); Mucus,Urine Rare /hpf; Nitrite,Urine Negative (Negative); Protein,Urine Negative (Negative); RBC,Urine <1 /hpf (0-5); Specific Gravity,Urine 1.009 (1.001-1.035); Urobilinogen,Urine <2.0 mg/dL (<2.0); WBC,Urine <1 /hpf (0-5)
--- NOTE | 2019-04-11 20:01 | PN ---
PROGRESS NOTE DATE OF SERVICE: 04/11/2019 This 79-year-old gentleman who was admitted after orthopedic surgery, has been closely monitored. No chest pain. No palpitations. No fever. EXAM: Alert and oriented x3. Pulse is 107, blood pressure is 140/74, respiration 16, temperature 98 degrees, pulse ox 100 percent room air. HEENT: Conjunctivae normal. NECK: No jugular venous distention. CARDIOVASCULAR: S1, S2. RESPIRATORY: Breath sounds diminished in the bases. A few scattered rhonchi and crackles. ABDOMEN: Soft, nontender. LEGS: No edema. NERVOUS SYSTEM: Diffusely weak. LAB STUDIES: WBC 12, hemoglobin 10.9, creatinine is 1.47. ASSESSMENT: 1. Left hip fracture status post intramedullary hip screw fixation. 2. Increased WBC, possibly reactive. 3. Mild pulmonary vascular congestion. 4. History of congestive heart failure with chronic systolic dysfunction. 5. Hypertension, fairly controlled. 6. Gait dysfunction. 7. Chronic kidney disease, stage III. 8. History of cerebrovascular accident, transient ischemic attack with no residual weakness. 9. Vitamin D deficiency. 10.History of DVT prophylaxis. 11.Hyponatremia, mild. RECOMMENDATIONS AND DISCUSSION: I recommend to continue current management and symptomatic treatment. I would recommend repeat labs. The patient has multiple complex medical issues and will necessitate rehab for continued improvement. See orders for details. I would also recommend UA with micro also to complete the workup. Further recommendations to follow. MMBLASL / IJN: [id number] /
[2019-04-11] MEDS: SENNOSIDES-DOCUSATE SODIUM 1 EACH TAB PO SCH (21:52)
--- NOTE | 2019-04-12 07:49 | P.DS ---
Providers Date of admission: 04/06/19 14:36 Expected date of discharge: 04/12/19 Attending physician: Chele Demarco Consults: 04/06/19 14:36 Consult Physician Stat Consulting Provider: Alen Dowd Consult Reason/Comments: medical clearance Do you want consulting provider notified?: Yes Primary care physician: Physician Nonstaff - Discharge Diagnosis(es) (1) Intertrochanteric fracture of left hip Current Visit: Yes Status: Acute (2) Hip fracture Current Visit: Yes Status: Acute Priority: Medium Hospital Course: This is a 79-year-old male who sustained a left hip fracture after a fall on 04/06/2019. The patient presented to the emergency room via EMS and x-rays showed an intertrochanteric fracture of the left hip. After discussion and consideration patient elects to proceed with intramedullary hip screw fixation of the left hip. The patient is seen preoperatively by Dr. Demarco and medically cleared for surgery by internal medicine. Patient is admitted to [facility] on 04/06/2019 and intramedullary hip screw fixation of the left hip is performed on 04/07/2019. The procedure is performed without complication or sequelae. The patient is doing well postoperatively. Labs and vital signs are stable on day of discharge. On day of discharge patient's hip incision is healing well. There is minimal erythema. There is no drainage noted at this time. There is minimal soft tissue swelling to the hip and thigh. Patient has full foot and ankle motion without difficulty or pain. Calf is soft and nontender to palpation. Neurovascular status to the left lower extremity is intact. Patient is discharged to rehab in good condition. Please see med rec for accurate list of home medications. Patient Condition at Discharge: Good Plan - Discharge Summary Discharge Rx Participant: Yes New Discharge Prescriptions: New Aspirin 325 mg PO BID #60 tab Docusate [Colace] 100 mg PO BID #60 capsule HYDROcodone/APAP 5-325MG [[place] 5-325] 1 tab PO Q4HR PRN #42 tab PRN Reason: Pain Metoprolol Tartrate [Lopressor] 25 mg PO BID tab Magnesium Hydroxide [Milk of Magnesia Concentrate] 2,400 mg PO ONCE PRN ml PRN Reason: Constipation Sennosides-Docusate Sodium [Senokot-S] 2 each PO HS tab Continue Ergocalciferol (Vitamin D2) [Vitamin D2] 50,000 unit PO FRANK Losartan Potassium 100 mg PO DAILY Discharge Medication List Ergocalciferol (Vitamin D2) [Vitamin D2] 50,000 unit PO FRANK 04/06/19 [History] Losartan Potassium 100 mg PO DAILY 04/06/19 [History] Aspirin 325 mg PO BID #60 tab 04/09/19 [Rx] Docusate [Colace] 100 mg PO BID #60 capsule 04/09/19 [Rx] HYDROcodone/APAP 5-325MG [[place] 5-325] 1 tab PO Q4HR PRN #42 tab 04/09/19 [Rx] Magnesium Hydroxide [Milk of Magnesia Concentrate] 2,400 mg PO ONCE PRN ml 04/09/19 [Rx] Metoprolol Tartrate [Lopressor] 25 mg PO BID tab 04/09/19 [Rx] Sennosides-Docusate Sodium [Senokot-S] 2 each PO HS tab 04/09/19 [Rx] Follow up Appointment(s)/Referral(s): Nonstaff,Physician [Primary Care Provider] - 1-2 days Chele Demarco MD [STAFF PHYSICIAN] - 04/22/19 2:50 pm Activity/Diet/Wound Care/Special Instructions: TDWB keep wound clean and dry take meds as directed may shower in 3 days if no bleeding F/U with Dr. Demarco in office CBC BMP in 2-3 days Discharge Disposition: TRANSFER TO SNF/ECF
[2019-04-12 08:46] LABS: Basophils % (A) 0 %; Eosinophils # (A) 0.4 k/uL (0-0.7); Eosinophils % (A) 4 %; HCT 34.7 % (39.0-53.0); HGB 11.2 gm/dL (13.0-17.5); Lymphocytes # (A) 0.9 k/uL (1.0-4.8); Lymphocytes % (A) 12 %; MCH 28.9 pg (25.0-35.0); MCHC 32.2 g/dL (31.0-37.0); MCV 89.9 fL (80.0-100.0); Mean Platelet Volume 7.4; Monocytes # (A) 0.5 k/uL (0-1.0); Monocytes % (A) 7 %; Neutrophils % (A) 75 %; Platelet Count 265 k/uL (150-450); RBC 3.85 m/uL (4.30-5.90); RDW 14.3 % (11.5-15.5); WBC 7.9 k/uL (3.8-10.6)
[2019-04-12] MEDS: HYDROcodone/APAP 5-325MG 1 EACH TAB PO PRN ×2 (08:55→20:03)
[2019-04-12] MEDS: LOSARTAN 50 MG TAB PO SCH (08:56)
[2019-04-12] MEDS: ASPIRIN 325 MG TAB PO SCH ×2 (08:56→20:03)
[2019-04-12] MEDS: METOPROLOL TARTRATE 25 MG TAB PO SCH ×2 (08:57→20:03)
[2019-04-12 09:06] LABS: Calcium 8.4 mg/dL (8.4-10.2)
[2019-04-12 09:07] LABS: Potassium 4.7 mmol/L (3.5-5.1)
[2019-04-12 10:42] VITALS: BMI 27.1
[2019-04-12] MEDS: LACTATED RINGERS 1,000 ML IV SCH (10:57)
[2019-04-12] MEDS: SENNOSIDES-DOCUSATE SODIUM 1 EACH TAB PO SCH (20:03)
--- NOTE | 2019-04-12 21:41 | PN ---
PROGRESS NOTE DATE OF SERVICE: 04/12/2019 This 79-year-old gentleman admitted after left hip fracture is still awaiting apparently preauthorization for rehab. No chest pain. No palpitations. No fever. On exam, alert and oriented x3. Pulse is 90, blood pressure 129/74, respiration 20, temperature 98.1, pulse ox 98% on room air. HEENT: Conjunctivae normal. NECK: No jugular venous distention. CARDIOVASCULAR SYSTEM: S1, S2 muffled. RESPIRATORY SYSTEM: Breath sounds diminished at the bases. Scattered rhonchi. No crackles. ABDOMEN: Soft, non-tender. LEGS: Status post surgery. NERVOUS SYSTEM: No focal deficit. LABS: WBC 7.9, hemoglobin 11.2. Creatinine is 1.48. ASSESSMENT: 1. Left hip fracture, status post intramedullary hip screw fixation. 2. Increased white count, possibly reactive. 3. Mild pulmonary vascular congestion. 4. History of congestive heart failure with chronic systolic dysfunction. 5. Hypertension, fairly controlled. 6. Gait dysfunction. 7. Chronic kidney disease, stage III. 8. History of cerebrovascular accident, transient ischemic attack. 9. History of vitamin D deficiency. 10.History of deep venous thrombosis prophylaxis. 11.Hyponatremia, mild. RECOMMENDATIONS AND DISCUSSION: I recommend to continue current medications, continue with the monitoring, symptomatic treatment. DVT prophylaxis. Rehab at [facility] as recommended once the paperwork is completed. Further recommendations to follow. DARIANL / VIRIDIANA: [id number] /
[2019-04-13] MEDS: LACTATED RINGERS 1,000 ML IV SCH (01:42)
[2019-04-13] MEDS: HYDROcodone/APAP 5-325MG 1 EACH TAB PO PRN ×2 (05:00→16:34)
[2019-04-13] MEDS: METOPROLOL TARTRATE 25 MG TAB PO SCH ×2 (07:40→19:46)
[2019-04-13] MEDS: LOSARTAN 50 MG TAB PO SCH (07:40)
[2019-04-13] MEDS: ASPIRIN 325 MG TAB PO SCH ×2 (07:40→19:47)
[2019-04-13] MEDS: SENNOSIDES-DOCUSATE SODIUM 1 EACH TAB PO SCH (19:46)
--- NOTE | 2019-04-13 21:02 | PN ---
PROGRESS NOTE DATE OF SERVICE: 04/13/2019. This 79 -year-old gentleman admitted after the hip fracture, had surgery. The patient has multiple medical issues and also the patient is from out of town and the patient has significant social home situation issues which the manager of case management and psych social worker are working on. No chest pain. No palpitations. No fever. EXAM: Alert and oriented x3. The pulse is 96. Blood pressure 117/85, respirations 16, temperature 97.8, pulse ox 100 percent on room air. HEENT: Conjunctivae normal. NECK: No jugular venous distention. CARDIOVASCULAR: S1, S2 muffled. RESPIRATORY: Breath sounds diminished in the bases. A few scattered rhonchi. ABDOMEN: Soft. LEGS status post surgery. NERVOUS SYSTEM: No focal deficits. LABS: WBC 7.2, hemoglobin 11.2, sodium 130, potassium 4.2. UA noted and creatinine is 1.48. ASSESSMENT: 1. Left hip fracture status post intramedullary hip screw fixation. 2. Increased WBC reactive. 3. Mild pulmonary vascular congestion. 4. History of congestive heart failure with chronic systolic dysfunction. 5. Hypertension, fairly controlled. 6. Gait dysfunction. 7. Chronic kidney stage 3. 8. History of cerebrovascular accident, transient ischemic attack. 9. History of vitamin D deficiency. 10.Hyponatremia mild. 11.Deep vein thrombosis prophylaxis. RECOMMENDATIONS AND DISCUSSION: In this 79-year-old gentleman who was admitted for surgery. The patient has significant social/home situation issues at this time. The patient apparently from [place], out of town, living in a trailer where the bedroom is upstairs. The home is not accessible to wheelchair or even walker. The bathrooms are really small according to the [id number]. The patient also had multiple other medical issues and the daughter in law also reports to me that the patient's elderly would not be able to do much of the support to the patient. The patient does not have any other family here either. The family lives somewhat distance away. I recommend the patient's family to talk with psych social worker and manager of case management to consult with the insurance for possible rehabilitation for a short time until the patient is more ambulant and able to do things on his own. The overall prognosis guarded because of the above mentioned reasons and we will continue to monitor. Further recommendations to follow. MMODL / IJN: [id number] /
[2019-04-14] MEDS: LACTATED RINGERS 1,000 ML IV SCH ×2 (00:17→23:07)
[2019-04-14] MEDS: METOPROLOL TARTRATE 25 MG TAB PO SCH ×2 (08:08→19:44)
[2019-04-14] MEDS: LOSARTAN 50 MG TAB PO SCH (08:09)
[2019-04-14] MEDS: ASPIRIN 325 MG TAB PO SCH ×2 (08:09→19:44)
[2019-04-14] MEDS: HYDROcodone/APAP 5-325MG 1 EACH TAB PO PRN ×2 (08:09→17:04)
--- NOTE | 2019-04-14 08:11 | P.PN ---
Subjective Progress Note Date: 04/14/19 This is a 79-year-old male who is status post intramedullary hip screw fixation of the left hip. Patient states that his pain is well controlled. Patient's discharge has been postponed due to rehab placement. Patient denies any new symptoms or complaints. Patient denies any fever/chills, numbness, weakness, tingling, abdominal pain, shortness of breath or chest pain. Objective - Vital Signs Vital signs: Vital Signs Temp 98.4 F 04/14/19 07:00 Pulse 100 04/14/19 07:00 Resp 16 04/14/19 07:00 BP 127/73 04/14/19 07:00 Pulse Ox 99 04/14/19 07:00 Intake & Output 04/13/19 04/14/19 04/14/19 18:59 06:59 18:59 Intake Total 200 Balance 200 Intake: Oral 200 Other: Voiding Method Toilet Urinal # Voids 1 3 - Exam Vital signs are stable. Patient is in no acute distress and is alert and orie nted 3. Calf is soft and nontender to palpation. Dressing is clean, dry, and intact. Patient has full foot and ankle motion without pain or difficulty. Neurovascular status and circulatory status are intact. - Labs CBC & Chem 7: 04/12/19 08:31 04/12/19 08:31 Assessment and Plan (1) Intertrochanteric fracture of left hip Current Visit: Yes Status: Acute Code(s): S72.142A - DISPLACED INTERTROCHANTERIC FRACTURE OF LEFT FEMUR, INIT SNOMED Code(s): 999644845 (2) Hip fracture Current Visit: Yes Status: Acute Priority: Medium Code(s): S72.009A - FRACTURE OF UNSP PART OF NECK OF UNSP FEMUR, INIT SNOMED Code(s): 175496203 Plan: Continue routine postop care and pain control. Continue anticoagulation with aspirin. Toe-touch weightbearing to the left lower extremity with a walker. Daily dressing changes. Appreciate input from medicine. Anticipate discharge to [facility] tomorrow.
[2019-04-14] MEDS: SENNOSIDES-DOCUSATE SODIUM 1 EACH TAB PO SCH (19:44)
--- NOTE | 2019-04-14 20:56 | PN ---
PROGRESS NOTE DATE OF SERVICE: 04/14/2019 This 79-year-old gentleman who was admitted with left hip fracture and interval hip screw fixation is being closely monitored. The patient has significant difficulties in home friend, because of the lack of resources and the patient also had multiple comorbidities as well. The possible ECF rehab is also being considered. talent solutions manager and social services specialist are working with the insurance company at this point. No chest pain. No palpitations. No fever. EXAM: Pulse 99, blood pressure 128/72, respirations 16, temperature 98.4, pulse ox 98% on room air. HEENT: Conjunctivae normal. NECK: No jugular venous distention. CARDIOVASCULAR: S1, S2. RESPIRATORY: Breath sounds diminished in the bases. No rhonchi, no crackles. ABDOMEN: Soft. LEGS: Status post surgery. NERVOUS SYSTEM: No focal deficits. LAB STUDIES: WBC 7.9 and hemoglobin 11.2. Creatinine is 1.48. ASSESSMENT: 1. Left hip fracture status post intramedullary hip screw fixation. 2. Increased WBC reactive. 3. Mild pulmonary vascular congestion. 4. History of congestive heart failure with chronic systolic dysfunction. 5. Hypertension, fairly controlled. 6. Gait dysfunction. 7. Chronic kidney stage III. 8. History of cerebrovascular accident, transient ischemic attack. 9. History of vitamin D deficiency. 10.Hyponatremia, mild. 11.DVT prophylaxis. RECOMMENDATIONS AND DISCUSSION: I recommend to continue current management, monitoring and symptomatic treatment. Repeat labs. As mentioned earlier, the patient has social issues. At this time the patient will definitely benefit from rehab because discharging home probably would not be a safe discharge, but we will continue to work with the social services specialist, case management and PT, OT. Further recommendations to follow. MMODL / IJN: [id number] /
[2019-04-15] MEDS: HYDROcodone/APAP 5-325MG 1 EACH TAB PO PRN ×2 (08:13→17:59)
[2019-04-15] MEDS: LOSARTAN 50 MG TAB PO SCH (08:13)
[2019-04-15] MEDS: ASPIRIN 325 MG TAB PO SCH ×2 (08:13→20:43)
[2019-04-15] MEDS: METOPROLOL TARTRATE 25 MG TAB PO SCH ×2 (08:13→20:44)
--- NOTE | 2019-04-15 09:02 | P.PN ---
Subjective Progress Note Date: 04/15/19 Principal diagnosis: Left IT fracture Patient is seen at bedside this morning. He is status post IM hip screw/IT nail for left hip fracture performed on 04/07/19. He has minimal pain at the surgical site as expected and denies any new complaints. He has been pending rehab placem ent. He denies numbness, tingling or calf pain. Review of systems is negative for fever, chills, chest pain, shortness of breath or other Objective - Vital Signs Vital signs: Vital Signs Temp 98.0 F 04/15/19 07:17 Pulse 98 04/15/19 07:17 Resp 16 04/15/19 07:17 BP 124/76 04/15/19 07:17 Pulse Ox 100 04/15/19 07:17 Intake & Output 04/14/19 04/15/19 04/15/19 18:59 06:59 18:59 Intake Total 716 Balance 716 Intake: Oral 716 Other: Voiding Method Toilet Urinal # Voids 3 1 # Bowel Movements 1 - Exam Inspection reveals a benign surgical wound. There is no active bleeding or drainage. Neurovascular status is intact throughout the lower extremity with motor and sensation fully intact. Calf is soft and nontender. 2+ dorsalis pedis pulse and less than 2 second cap refill is present. - Constitutional General appearance: Present: no acute distress - Labs CBC & Chem 7: 04/12/19 08:31 04/12/19 08:31 Assessment and Plan (1) Hip fracture Narrative/Plan: He will continue with routine postop orthopedic protocol including pain management, wound care, PT, DVT prophylaxis and medical management. Expect that he will transfer to rehab in next 1-2 days Current Visit: Yes Status: Acute Priority: Medium Code(s): S72.009A - FRACTURE OF UNSP PART OF NECK OF UNSP FEMUR, INIT SNOMED Code(s): 668662967 Time with Patient: Less than 30
--- NOTE | 2019-04-15 14:27 | PN ---
PROGRESS NOTE DATE OF SERVICE: 04/15/2019 This is a 79 -year-old gentleman admitted for left hip surgery is being closely monitored at this time. The patient had multiple social issues and individual social support and possible ECF rehab is being considered at this time. corporate services manager, social work working on the case. No chest palpitations. No fever. PHYSICAL EXAM: Alert and oriented x3. Pulse is 89, blood pressure 120/70, respirations 16, temperature 98 degrees, pulse ox 100% on room air. HEENT: Conjunctivae normal. NECK: No jugular venous distension. CARDIOVASCULAR SYSTEM: S1, S2, RESPIRATORY: Breath sounds diminished at the bases, no rhonchi, no crackles. ABDOMEN: Soft, nontender. No mass. LEGS: No edema. No swelling, Status post surgery. NERVOUS SYSTEM: No focal deficits. LABS: WBC is 7.2, hemoglobin is 11.2, sodium 137, potassium 4.7, creatinine is 1.48. ASSESSMENT: 1. Left hip fracture, status post intramedullary hip screw fixation. 2. Increased WBC, reactive. 3. Mild pulmonary vascular congestion. 4. Gait dysfunction. 5. History of congestive heart failure with chronic dysfunction. 6. Hypertension, medically controlled. 7. Gait dysfunction. 8. Chronic kidney disease stage III. 9. History of cerebrovascular accident, transient ischemic attack. 10.History of vitamin D deficiency. 11.Hyponatremia. 12.Deep venous thrombosis prophylaxis. RECOMMENDATION: Recommend to continue current medical management and symptomatic treatment, as mentioned earlier. The patient has significant social issues at home regarding ambulation. Please refer to the previous dictation and notes from PT, OT. Social Work and staff notes for further details. Otherwise, will continue to monitor. I would also recommend repeat labs also to ensure stability for creatinine. Prognosis guarded. Further recommendation to follow. MMODL / IJN: [id number] /
[2019-04-15] MEDS: LACTATED RINGERS 1,000 ML IV SCH (15:08)
[2019-04-15] MEDS: SENNOSIDES-DOCUSATE SODIUM 1 EACH TAB PO SCH (20:44)
[2019-04-16 07:36] VITALS: BP 115/73; PULSE 90; RESP 12; TEMP 98.5
[2019-04-16] MEDS: ASPIRIN 325 MG TAB PO SCH (08:12)
[2019-04-16] MEDS: HYDROcodone/APAP 5-325MG 1 EACH TAB PO PRN (08:12)
[2019-04-16] MEDS: METOPROLOL TARTRATE 25 MG TAB PO SCH (08:12)
[2019-04-16] MEDS: LOSARTAN 50 MG TAB PO SCH (08:12)
[2019-04-16 09:13] LABS: Basophils # (A) 0.1 k/uL (0-0.2); Basophils % (A) 1 %; Eosinophils # (A) 0.3 k/uL (0-0.7); Eosinophils % (A) 3 %; HCT 36.7 % (39.0-53.0); HGB 11.4 gm/dL (13.0-17.5); Hypochromasia Slight; Lymphocytes # (A) 1.4 k/uL (1.0-4.8); Lymphocytes % (A) 13 %; MCH 28.3 pg (25.0-35.0); MCV 91.4 fL (80.0-100.0); Mean Platelet Volume 7.1; Monocytes # (A) 0.7 k/uL (0-1.0); Monocytes % (A) 7 %; Neutrophils # (A) 7.8 k/uL (1.3-7.7); Neutrophils % (A) 75 %; Platelet Count 458 k/uL (150-450); RBC 4.02 m/uL (4.30-5.90); RDW 14.7 % (11.5-15.5); WBC 10.4 k/uL (3.8-10.6)
[2019-04-16 09:23] LABS: Calcium 9.3 mg/dL (8.4-10.2); Potassium 5.4 mmol/L (3.5-5.1)
--- NOTE | 2019-04-16 18:05 | P.PN ---
Subjective Progress Note Date: 04/16/19 Principal diagnosis: Left intertrochanteric hip fracture Patient is a 79-year-old male with a known history of CVA/TIA with no residual weakness, chronic kidney disease stage III, vitamin D deficiency and hypertension came to ER status post fall. Patient was climbing down the caraballo stool after fixing the curtain and suddenly lost balance and fell on his left hip. Since then patient has been having worsening pain and unable to ambulate without support. Patient denied any dizziness or lightheadedness. No chest pain or shortness of breath. No history of syncope. X-ray of the left hip showed intertrochanteric fracture displaced. Internal medicine service was consulted for medical clearance. BUN 25, creatinine 1.69, WBC 14.5 BNP 232, troponin 2 negative Chest x-ray showed cardiomegaly and mild pulmonary vascular congestion. 04/07/2019 Patient is status post left intramedullary hip screw fixation for left intertrochanteric fracture. Postoperative day 0 Currently blood pressure is controlled. No worsening pain. No chest pain or shortness of breath. 2-D echocardiogram showed ejection fraction 40-45% with mildly reduced systolic function. Moderate aortic sclerosis and moderate aortic stenosis. Patient will be continued on metoprolol and losartan. Creatinine level slightly improved to 1.58. Patient does have underlying CK D stage III. Patient will need follow-up with cardiology and nephrology as an outpatient. 04/16/2090 Patient denied any complaints of chest pain or shortness of breath. Able to complete without support R hip pain. No commerce of nausea vomiting abdominal pain. No other acute overnight issues. No leg swelling. Patient is being discharged home today. Discharge medication reconciliation was done. Current medications reviewed. Objective - Vital Signs Vital signs: Vital Signs Temp 98.5 F 04/16/19 07:02 Pulse 90 04/16/19 07:02 Resp 12 04/16/19 07:02 BP 115/73 04/16/19 07:02 Pulse Ox 95 04/16/19 07:02 Intake & Output 04/15/19 04/16/19 04/16/19 18:59 06:59 18:59 Intake Total 6170 117 0313 Balance 1789 909 2679 Intake: Oral 0231 390 5720 Other: Voiding Method Toilet Toilet Toilet Urinal Urinal # Bowel Movements 1 - Exam PHYSICAL EXAMINATION: Patient is lying in the bed comfortably, no acute distress, awake alert and oriented.. HEENT: Normocephalic. Neck is supple. Pupils reactive. Nostrils clear. Oral cavity is moist. Ears reveal no drainage. Neck reveals no JVD, carotid bruits, or thyromegaly. CHEST EXAMINATION: Trachea is central. Symmetrical expansion. Lung holloway clear to auscultation and percussion. CARDIAC: Normal S1, S2 with no gallops. No murmurs . Systolic murmur present. ABDOMEN: Soft. Bowel sounds normal. No organomegaly. No abdominal bruits. Extremities: reveal no edema. No clubbing or cyanosis Neurologically awake, alert, oriented x3 with well-coordinated movements. No focal deficits noted Skin: No rash or skin lesions. Psychiatric: Coperative. Nonsuicidal Musculoskeletal: No joint swelling or deformity. Tenderness of the left trochanter. - Labs CBC & Chem 7: 04/16/19 08:52 04/16/19 08:52 Labs: Abnormal Lab Results - Last 24 Hours (Table) 04/16/19 04/16/19 Range/Units 08:52 08:52 RBC 4.02 L (4.30-5.90) m/uL Hgb 11.4 L (13.0-17.5) gm/dL Hct 36.7 L (39.0-53.0) % Plt Count 458 H (150-450) k/uL Neutrophils # 7.8 H (1.3-7.7) k/uL Potassium 5.4 H (3.5-5.1) mmol/L BUN 35 H (9-20) mg/dL Creatinine 1.58 H (0.66-1.25) mg/dL Glucose 147 H (74-99) mg/dL Assessment and Plan Assessment: Left intertrochanteric displaced fracture status post mechanical fall. Status post intramedullary hip screw fixation on 04/07/2019. Mild pulmonary vascular congestion. BNP is not elevated no leg swelling. Unlikely acute CHF. Chronic CHF with systolic dysfunction. Hypertension fairly controlled. Continue losartan upon discharge.. Acute on Chronic kidney disease stage III. Baseline creatinine not known. Creatinine 1.58 currently History of CVA/TIA with no residual weakness. Vitamin D deficiency DVT prophylaxis Plan: Patient will be continued on telemetry monitoring. 2-D echocardiogram was ordered to assess left ventricular systolic function and for any valvular abnormalities was reviewed.. Patient does not have any active symptoms of chest pain or shortness of breath. Continue with metoprolol and losartan. Outpatient nephrology and cardiology follow-up.. Patient is being discharged to home with home care. Time with Patient: Greater than 30
== END 2019-04-16 15:22 | disposition home health service (06) | DRG 481 ==
LOC: EC 12:52 → 4SSUR 14:36
PROVIDERS: ADMIT Orthopaedic Surgery Sports Medicine; ATTEND Orthopaedic Surgery Sports Medicine
PROC: 0QS706Z Reposition Left Upper Femur with Intramedullary Internal Fixation Device, Open Approach (ICD-10-PCS; principal; 2019-04-07 10:00)
DX: S72.142A Displaced intertrochanteric fracture of left femur, initial encounter for closed fracture (principal); E87.1 Hypo-osmolality and hyponatremia; I13.0 Hypertensive heart and chronic kidney disease with heart failure and stage 1 through stage 4 chronic kidney disease, or unspecified chronic kidney disease; I50.22 Chronic systolic (congestive) heart failure; N17.9 Acute kidney failure, unspecified; E55.9 Vitamin D deficiency, unspecified; I35.0 Nonrheumatic aortic (valve) stenosis; I70.0 Atherosclerosis of aorta; N18.3 Chronic kidney disease, stage 3 (moderate); W07.XXXA Fall from chair, initial encounter; Z86.73 Personal history of transient ischemic attack (TIA), and cerebral infarction without residual deficits; Z87.891 Personal history of nicotine dependence
CPT/HCPCS: 36415; 71045; 73501; 73502; 80048; 81001; 83880; 84484; 85025; 85610; 93005; 93306; 94760; 96374; 99285

== ENCOUNTER → 2022-10-17 | Outpatient (CLI) | payer MEDICARE ==
--- NOTE | 2022-10-17 15:12 | US ---
EXAMINATION TYPE: US arterial LE single level DATE OF EXAM: 10/17/2022 1:27 PM CLINICAL HISTORY: I73.9. CABG x 2. Valve replacement 3 years ago. Discoloration (redness, purple) kishor ateral feet, worse on the right for 2 months History of: Smoker: PRIOR, QUIT 30 YEARS AGO Hypertension: YES Diabetic: NO Hyperlipidemia: NO TIA/CVA: TIA Previous Vascular Surgery: YES CAD: NO CA: NO Vascular Ulcers: NO Claudication: NO Gangrene: NO Comparison: Prior study January 07, 2022 Doppler Waveforms: Right: Biphasic Left: Biphasic Right Brachial Pressure: 165 Left Brachial Pressure: 163 Ankle-Brachial Indices: Right: 1.10 Left: 1.01 Toe Brachial Indices: Right: 0.83 Left: 0.74 IMPRESSION: Normal study. No significant change from recent prior.
== END | disposition home or self-care (01) ==
LOC: RADUSWWP 12:51
PROVIDERS: ATTEND Family Medicine
DX: I73.9 Peripheral vascular disease, unspecified (principal)
CPT/HCPCS: 93922

== ENCOUNTER → 2024-08-29 | Outpatient (CLI) | payer MEDICARE ==
--- NOTE | 2024-08-29 16:39 | CT ---
EXAMINATION TYPE: CT chest wo con DATE OF EXAM: 08/29/2024 4:03 PM COMPARISON: Chest radiograph from 01/19/2023. CLINICAL INDICATION: Male, 84 years old with history of R91.8 OTHER NONSPECIFIC ABNORMAL FINDING OF L BRITNEY F; PHH, Abnormal finding of lung field, patient unable to raise arms above head. TECHNIQUE: Multiple axial images were obtained through the chest. Sagittal and coronal reformats were created for review. MIP was performed on a separate workstation. Contrast used: mL of (None if empty) Oral contrast used: (None if empty) CT DLP: 588.6 mGycm, Automated exposure control for dose reduction was used. FINDINGS: LUNGS/ PLEURA: No evidence for pleural effusion mild increased interstitial lung markings. AIRWAY: Patent and unremarkable. HEART: Aortic valve repair changes. The heart is enlarged size. Arthrosis course of the arterial vasc ulature. MEDIASTINUM: No gross evidence of adenopathy. VASCULATURE: No aortic aneurysm. MUSCULOSKELETAL: Moderate disc degeneration changes are present throughout the thoracolumbar spine. s ternotomy wires are present. Vertebral body hemangioma at T9 vertebrae SOFT TISSUES/LYMPH NODES: Unremarkable. LOWER NECK: No significant findings. UPPER ABDOMEN: Left simple simple appearing renal cysts. Atrophic kidneys. Fatty atrophy of the pancr eas. IMPRESSION: 1. No evidence for acute thoracic process. 2. Cardiomegaly. No evidence of heart failure. 3. Atherosclerosis of the coronary vasculature. Follow up recommendations for incidental pulmonary nodules, if there are any, are per [employer]s [employer] or [employer]. https://radiopaedia.org/articles/jhwreuiaev-zfmykig-cxtsuekaz-zeboiw-dnkkomxefbtabka-[email or web address]?lang=us [facility], , 08/29/2024 4:37 PM
== END | disposition home or self-care (01) ==
LOC: RADCTMAIN 15:42
PROVIDERS: ATTEND Family Medicine
DX: I25.10 Atherosclerotic heart disease of native coronary artery without angina pectoris (principal); I51.7 Cardiomegaly; R91.8 Other nonspecific abnormal finding of lung field
CPT/HCPCS: 71250

== ENCOUNTER 2025-02-26 15:52 | Inpatient (IN) | payer MEDICARE ==
--- NOTE | 2025-02-26 17:05 | ED ---
General Adult HPI - General Source: patient, family, RN notes reviewed Mode of arrival: wheelchair Limitations: no limitations <Rosa Sam - Last Filed: 02/26/25 17:03> - General Source: patient, family, RN notes reviewed <Ramos Schultz - Last Filed: 02/26/25 20:17> - General Chief complaint: Shortness of Breath Stated complaint: Sent by doctor/Lung issue Time Seen by Provider: 02/26/25 16:10 - History of Present Illness Initial comments: Quick [id number] male, with a history of CHF, presenting to the emergency department with referral from primary care provider with concerns for pulmonary edema. Patient denies chest pain, peripheral edema, difficulty in breathing, orthopnea. Has been taking home Lasix as prescribed. (Rosa Sam) Patient is an 84-year-old male who presents emergency department for worsening exertional dyspnea. This has been ongoing for weeks. Slightly worse over the last week. Denies chest pain or shortness of breath. Denies any nausea, vomiting, productive cough. Denies any worsening orthopnea or paroxysmal nocturnal dyspnea. Patient is on Coumadin for valve surgery. Patient does have a history of cardiac disease. Also history of CHF and is on Lasix. Presents for further evaluation at this time. Originally seen as a quick note. (Ramos Schultz) - Related Data Home Medications Medication Instructions Recorded Confirmed Atorvastatin [Lipitor] 20 mg PO HS 02/26/25 02/26/25 Ferrous Sulfate [Feosol] 325 mg PO Q3D 02/26/25 02/26/25 Furosemide [Lasix] 40 mg PO DAILY 02/26/25 02/26/25 Losartan [Cozaar] 25 mg PO DAILY 02/26/25 02/26/25 Warfarin [Coumadin] 3 mg PO DAILY@1700 02/26/25 02/26/25 carvediloL [Coreg] 6.25 mg PO BID-W/MEALS 02/26/25 02/26/25 Allergies Allergy/AdvReac Type Severity Reaction Status Date / Time No Known Allergies Allergy Verified 02/26/25 20:08 Review of Systems ROS Other: All systems not noted in ROS Statement are negative. <Rosa Sam - Last Filed: 02/26/25 17:03> ROS Other: All systems not noted in ROS Statement are negative. <Ramos Schultz - Last Filed: 02/26/25 20:17> ROS Statement: Those systems with pertinent positive or pertinent negative responses have been documented in the HPI. Review of Systems: CONST: Denies fever EYES: Denies blurry vision ENT: Denies nasal congestion C/V: Denies Chest pain RESP: Endorses exertional shortness of breath GI: Denies abdominal pain : Denies dysuria SKIN: Denies rash. MSK: Denies joint pain. NEURO: Denies headache (Ramos Schultz) Past Medical History Past Medical History: CVA/TIA Additional Past Medical History / Comment(s): Mini-stroke 2009, no complications History of Any Multi-Drug Resistant Organisms: None Reported Past Surgical History: No Surgical Hx Reported Past Anesthesia/Blood Transfusion Reactions: No Reported Reaction Past Psychological History: No Psychological Hx Reported Smoking Status: Former smoker Past Alcohol Use History: None Reported Past Drug Use History: None Reported - Past Family History Father Family Medical History: No Reported History <Rosa Sam - Last Filed: 02/26/25 17:03> General Exam Limitations: no limitations <Rosa Sam - Last Filed: 02/26/25 17:03> <Ramos Schultz - Last Filed: 02/26/25 20:17> - General Exam Comments Initial Comments: Visual Physical Exam Vital signs reviewed General: Well-appearing, nontoxic, no acute distress. Head: Normocephalic, atraumatic Eyes: PERRLA, EOMI ENT: Airway patent Chest: Nonlabored breathing Skin: No visual rash, normal skin tone Neuro: Alert and oriented 3 Musculoskeletal: No gross abnormalities (Rosa Sam) General: Appears in no acute distress. HEAD: Normal with no signs of head trauma. EYES: EOMI ENT: Hearing grossly intact, normal oropharynx. RESPIRATORY: Clear breath sounds bilaterally. No wheezes, rales, or rhonchi. C/V: Regular rate and rhythm. S1 and S2 auscultated, mild bilateral lower extremity pitting edema that is symmetrical., peripheral pulses 2+ and intact throughout ABD: Abd is soft, nontender, nondistended EXT: Normal range of motion, no obvious deformity SKIN: No rashes or lesions observed on exposed skin. NEURO: Alert and oriented x 4. (Ramos Schultz) Course Vital Signs 02/26/25 02/26/25 02/26/25 16:01 18:24 20:00 Temperature 97.9 F Pulse Rate 92 95 89 Respiratory 16 24 18 Rate Blood Pressure 123/78 131/65 130/72 O2 Sat by Pulse 98 96 98 Oximetry Medical Decision Making <Rosa Sam - Last Filed: 02/26/25 17:03> - Lab Data Result diagrams: 02/26/25 17:37 02/26/25 19:00 - EKG Data -: EKG Interpreted by Me <Ramos Schultz - Last Filed: 02/26/25 20:17> - Medical Decision Making I completed the quick note portion of this chart signed Rosa Sam PA-C (Rosa Sam) Was pt. sent in by a medical professional or institution ([facility] Hightower, INSIDE ACCOUNT REPRESENTATIVE, urgent care, hospital, or retirement...) When possible be specific @ -Sent by PCP for evaluation of dyspnea Did you speak to anyone other than the patient for history (EMS, parent, family, police, friend...)? What history was obtained from this source @ -No Did you review nursing and triage notes (agree or disagree)? Why? @ -I reviewed and agree with nursing and triage notes Were old charts reviewed (outside hosp., previous admission, EMS record, old EKG, old radiological studies, urgent care reports/EKG's, retirement records)? Report findings @ -No old charts were reviewed Differential Diagnosis (chest pain, altered mental status, abdominal pain women, abdominal pain men, vaginal bleeding, weakness, fever, dyspnea, syncope, headache, dizziness, GI bleed, back pain, seizure, CVA, palpatations, mental health, musculoskeletal)? @ -Differential Dyspnea: Coronary syndrome, arrhythmia, tamponade, asthma, COPD, pulmonary embolism, pneumonia, pneumothorax, pulmonary effusion, anaphylaxis, diabetic ketoacidosis, flailed chest, pulmonary contusion, diaphragmatic rupture, anemia, neuromuscular, this is not meant to be an all-inclusive list. EKG interpreted by me (3pts min.). @ -As above X-rays interpreted by me (1pt min.). @ -Chest x-ray does show what looks like a small pleural effusion on the left. CT interpreted by me (1pt min.). @ -None done U/S interpreted by me (1pt. min.). @ -None done What testing was considered but not performed or refused? (CT, X-rays, U/S, labs)? Why? @ -None What meds were considered but not given or refused? Why? @ -None Did you discuss the management of the patient with other professionals (juan pablo burris i.e. , PA, INSIDE ACCOUNT REPRESENTATIVE, lab, RT, psych nurse, dialysis social worker, compliance assistant, teacher, campus safety officer, block and case maker)? Give summary @ -Discussed with admitting provider, Dr. [facility] accepted the admission. Was smoking cessation discussed for >3mins.? @ -No Was critical care preformed (if so, how long)? @ -Yes, 32 minutes Were there social determinants of health that impacted care today? How? (Homelessness, low income, unemployed, alcoholism, drug addiction, transportation, low edu. Level, literacy, decrease access to med. care, assisted, rehab)? @ -No Was there de-escalation of care discussed even if they declined (Discuss DNR or withdrawal of care, Hospice)? DNR status @ -No What co-morbidities impacted this encounter? (DM, HTN, Smoking, COPD, CAD, Cancer, CVA, ARF, Chemo, Hep., AIDS, mental health diagnosis, sleep apnea, morbid obesity)? @ -CHF, CAD Was patient admitted / discharged? Hospital course, mention meds given and route, prescriptions, significant lab abnormalities, going to OR and other pertinent info. @ -Patient presents for exertional dyspnea that has been ongoing for weeks. No chest pain. Sent by PCP. Vital signs are within acceptable limits. Exertional hypoxia is not present however he does become winded and dyspneic. He otherwise has no obvious acute complaints. Workup started in triage. EKG shows intraventricular conduction delay with no obvious acute findings suggestive of acute ischemia at this time. Chest x-ray is unremarkable. Labs are remarkable for an elevated BNP of 2800 and slightly elevated troponin of 0.04. Patient does have an elevated BUN and creatinine with a creatinine of 1.78 which does seem improved compared with recent values from December 2023. I update the patient. He remains asymptomatic at rest. With elevated troponin as well as his symptomatic presentation he will be admitted. Will trend the troponin. Patient administered 324 mg of aspirin. He will also receive a dose of IV Lasix. He was in agreement this plan. Discussed with admitting provider, Dr. Crespo [facility] [place] the admission. Discussed the case with Dr. Gaitan who was rounding in the ER and reviewed EKGs as well as the patient's clinical presentation. He was in agreement the plan but did recommend placing the patient on a heparin drip. He reviewed the EKGs. Concerning findings for ischemic changes. Undiagnosed new problem with uncertain prognosis? @ -No Drug Therapy requiring intensive monitoring for toxicity (Heparin, Nitro, Insulin, Cardizem)? @ -Heparin Were any procedures done? @ -No Diagnosis/symptom? @ -CHF, NSTEMI Acute, or Chronic, or Acute on Chronic? @ -Acute Uncomplicated (without systemic symptoms) or Complicated (systemic symptoms)? @ -Complicated Side effects of treatment? @ -No Exacerbation, Progression, or Severe Exacerbation? @ -No Poses a threat to life or bodily function? How? (Chest pain, USA, AR, pneumonia, PE, COPD, DKA, ARF, appy, cholecystitis, CVA, Diverticulitis, Homicidal, Suicidal, threat to staff... and all critical care pts) @ -Potentially, yes (Ramos Schultz) - Lab Data Lab Results 02/26/25 02/26/25 02/26/25 Range/Units 17:37 17:37 17:37 WBC 9.50 (4.50-10.00) 10*3/uL RBC 5.07 (4.40-5.60) 10*6/uL Hgb 14.7 (13.0-17.0) g/dL Hct 46.3 (39.6-50.0) % MCV 91.3 (80.0-97.0) fL MCH 29.0 (27.0-32.0) pg MCHC 31.7 L (32.0-37.0) g/dL Plt Count 201 (140-440) 10*3/uL MPV 10.2 (9.5-12.2) fL Immature Gran % (Auto) 0.4 % Neutrophils % 70.9 % Lymphocytes % 15.8 % Monocytes % 8.4 % Eosinophils % 3.9 % Basophils % 0.6 % Immature Gran # 0.04 (0.00-0.04) 10*3/uL Neutrophils # 6.73 (1.80-7.70) 10*3/uL Lymphocytes # 1.50 (0.90-5.00) 10*3/uL Monocytes # 0.80 (0.20-1.00) 10*3/uL Eosinophils # 0.37 H (0.04-0.35) 10*3/uL Basophils # 0.06 (0.00-0.10) 10*3/uL PT 18.4 H (10.0-12.5) sec INR 1.8 H (<1.2) APTT 27.8 (22.0-30.0) sec Sodium (137-145) mmol/L Potassium (3.5-5.1) mmol/L Chloride (98-107) mmol/L Carbon Dioxide (22-30) mmol/L Anion Gap mmol/L BUN (9-20) mg/dL Creatinine (0.66-1.25) mg/dL Est GFR (CKD-EPI)AfAm (>60 ml/min/1.73 sqM) Est GFR (CKD-EPI)NonAf (>60 ml/min/1.73 sqM) Glucose (74-99) mg/dL Calcium (8.4-10.2) mg/dL Magnesium (1.6-2.3) mg/dL Total Bilirubin (0.2-1.3) mg/dL AST (17-59) U/L ALT (4-49) U/L Alkaline Phosphatase (38-126) U/L Troponin I 0.040 H* (0.000-0.034) ng/mL NT-Pro-B Natriuret Pep pg/mL Total Protein (6.3-8.2) g/dL Albumin (3.5-5.0) g/dL 02/26/25 Range/Units 19:00 WBC (4.50-10.00) 10*3/uL RBC (4.40-5.60) 10*6/uL Hgb (13.0-17.0) g/dL Hct (39.6-50.0) % MCV (80.0-97.0) fL MCH (27.0-32.0) pg MCHC (32.0-37.0) g/dL Plt Count (140-440) 10*3/uL MPV (9.5-12.2) fL Immature Gran % (Auto) % Neutrophils % % Lymphocytes % % Monocytes % % Eosinophils % % Basophils % % Immature Gran # (0.00-0.04) 10*3/uL Neutrophils # (1.80-7.70) 10*3/uL Lymphocytes # (0.90-5.00) 10*3/uL Monocytes # (0.20-1.00) 10*3/uL Eosinophils # (0.04-0.35) 10*3/uL Basophils # (0.00-0.10) 10*3/uL PT (10.0-12.5) sec INR (<1.2) APTT (22.0-30.0) sec Sodium 141 (137-145) mmol/L Potassium 4.0 (3.5-5.1) mmol/L Chloride 104 (98-107) mmol/L Carbon Dioxide 28 (22-30) mmol/L Anion Gap 9 mmol/L BUN 38 H (9-20) mg/dL Creatinine 1.78 H (0.66-1.25) mg/dL Est GFR (CKD-EPI)AfAm 40 (>60 ml/min/1.73 sqM) Est GFR (CKD-EPI)NonAf 35 (>60 ml/min/1.73 sqM) Glucose 116 H (74-99) mg/dL Calcium 9.0 (8.4-10.2) mg/dL Magnesium 2.1 (1.6-2.3) mg/dL Total Bilirubin 0.7 (0.2-1.3) mg/dL AST 22 (17-59) U/L ALT 16 (4-49) U/L Alkaline Phosphatase 65 (38-126) U/L Troponin I (0.000-0.034) ng/mL NT-Pro-B Natriuret Pep 2830 pg/mL Total Protein 6.1 L (6.3-8.2) g/dL Albumin 3.8 (3.5-5.0) g/dL - EKG Data EKG Comments: 12-lead Electrocardiogram Interpretation Note EKG was reviewed and interpreted by myself. 12-lead ECG performed at 1612 is interpreted by me as revealing sinus rhythm with first-degree AV block and intraventricular conduction delay at a rate of 92 beats per minute. Left axis deviation. KY interval is 231 ms, QRS duration is 149 ms, QTc is 414 ms.. EKG is concerning for possible ischemic changes with ST segment depressions. NonSpecific ST segment abnormalities. R wave progression across the precordium was Delayed. 12-lead Electrocardiogram Interpretation Note EKG was reviewed and interpreted by myself. 12-lead ECG performed at 1901 is interpreted by me as revealing normal sinus rhythm with first-degree AV block intraventricular conduction delay at a rate of 92 beats per minute. Left axis deviation. KY interval is 279 ms, QRS duration is 148 ms, QTc is 4 2021 ms.. EKG is concerning for possible ischemic changes with ST segment depressions. . NonSpecific ST segment abnormalities. R wave progression across the precordium was delayed. No dynamic changes when compared with EKG from earlier (Ramos Schultz) Critical Care Time Critical Care Time: Yes Total Critical Care Time: 32 <Ramos Schultz - Last Filed: 02/26/25 20:17> Disposition <Rosa Sam - Last Filed: 02/26/25 17:03> Time of Disposition: 19:51 <Ramos Schultz - Last Filed: 02/26/25 20:17> Clinical Impression: CHF (congestive heart failure), NSTEMI (non-ST elevated myocardial infarction) Disposition: ADMITTED IP TO THIS HOSP Condition: Stable Referrals: Rex Baker MD [Primary Care Provider] - 1-2 days
--- NOTE | 2025-02-26 17:27 | XR ---
EXAMINATION TYPE: XR chest 2V DATE OF EXAM: 02/26/2025 5:24 PM COMPARISON: 04/06/19 CLINICAL INDICATION: Male, 84 years old with history of difficulty breathing: Shortness of breath TECHNIQUE: XR chest 2V views of the chest are obtained. FINDINGS: Scattered senescent parenchymal changes noted. Hyperinflation compatible with COPD. No evidence for infiltrate. No evidence for atelectasis. Heart size is stable. Mediastinal structures are stable and grossly unremarkable. No evidence for hilar prominence. Degenerative changes dorsal spine. IMPRESSION: 1. No evidence for acute pulmonary disease. [facility], , 02/26/2025 5:24 PM
[2025-02-26 18:14] LABS: Basophils # (A) 0.06 10*3/uL (0.00-0.10); Basophils % (A) 0.6 %; Eosinophils # (A) 0.37 10*3/uL (0.04-0.35); Eosinophils % (A) 3.9 %; HCT 46.3 % (39.6-50.0); HGB 14.7 g/dL (13.0-17.0); Lymphocytes % (A) 15.8 %; MCHC 31.7 g/dL (32.0-37.0); MCV 91.3 fL (80.0-97.0); Mean Platelet Volume 10.2 fL (9.5-12.2); Monocytes % (A) 8.4 %; Neutrophils # (A) 6.73 10*3/uL (1.80-7.70); Neutrophils % (A) 70.9 %; Platelet Count 201 10*3/uL (140-440); RBC 5.07 10*6/uL (4.40-5.60); RDW 14.7 % (11.5-14.5)
[2025-02-26 18:35] LABS: INR 1.8 (<1.2); Partial Thromboplastin Time 27.8 sec (22.0-30.0); Prothrombin Time 18.4 sec (10.0-12.5)
[2025-02-26] MEDS: ASPIRIN 81 MG PO STA (19:15)
[2025-02-26 19:30] LABS: ALT 16 U/L (4-49); AST 22 U/L (17-59); African American GFR (CKD) 40 (>60 ml/min/1.73 sqM); Albumin 3.8 g/dL (3.5-5.0); Alkaline Phosphatase 65 U/L (38-126); Anion Gap 9 mmol/L; Blood Urea Nitrogen 38 mg/dL (9-20); Carbon Dioxide 28 mmol/L (22-30); Chloride 104 mmol/L (98-107); Glucose 116 mg/dL (74-99); Magnesium 2.1 mg/dL (1.6-2.3); Non-African American GFR(CKD) 35 (>60 ml/min/1.73 sqM); Sodium 141 mmol/L (137-145); Total Bilirubin 0.7 mg/dL (0.2-1.3); Total Protein 6.1 g/dL (6.3-8.2)
[2025-02-26 19:38] LABS: NT-Pro-B-Type Natriuretic Pept 2830 pg/mL
[2025-02-26] MEDS ORDERED: NALOXONE 0.4 MG/ML 1 ML VIAL IV PRN (19:52)
[2025-02-26] MEDS ORDERED: ONDANSETRON 4 MG/2 ML VIAL IVP PRN (19:52)
[2025-02-26] MEDS: FUROSEMIDE 10 MG/ML 4 ML VIAL IV STA (20:03)
[2025-02-26] MEDS: HEPARIN SODIUM 1,000 UN/ML (10ML VL) IV ONE (20:43)
[2025-02-26] MEDS: HEPARIN SOD,PORK IN 0.45% NACL 25,000 UNIT in 0.45% NACL 1 250ML.BAG IV SCH (20:44)
[2025-02-27] MEDS: ATORVASTATIN 40 MG TAB PO SCH (00:24)
--- NOTE | 2025-02-27 00:33 | P.HPIM ---
History of Present Illness H&P Date: 02/26/25 History of present illness; 84-year-old male with a PMH of HFrEF (most recent echocardiogram from 04/06/2019 showed EF of 45-50% with moderate aortic valve sclerosis and moderate aortic stenosis) maintained on Lasix at home, stage IIIb CKD, hypertension, CAD and CVA/TIA presents emergency department after referral from his primary care physician with concerns of pulmonary edema. Patient notes he has been having worsening exertional dyspnea which has been going on for couple of weeks, and has progressively worsened over the past week. He denies any chest pain, shortness of breath, nausea, vomiting or productive cough. Denies any worsening orthopnea or paroxysmal nocturnal dyspnea. He is on Coumadin following valve surgery. Upon evaluation at bedside, patient reports minimal difficulty br eathing and is resting comfortably. Did undergo a walk test prior to my examination in which his saturations dropped to 92-93% while walking, and quickly recovered when at rest. Labratory review: -WBCs 9.50, hemoglobin 14.7, hematocrit 46.3, platelet 201; PT 18.4, INR 1.8, APTT 27.8; sodium 141, potassium 4.0, bicarb 28, BUN 38, creatinine 1.78, calcium 9.0, magnesium 2.1, total bilirubin 0.7, AST 22, ALT 16, alkaline phosphatase 65 - Trend troponin: 0.40 -> 0.039; proBNP 2830 -Respiratory viral panel all negative Imaging: -Chest x-ray done in the ER independently read and interpreted showed no evidence of acute pulmonary disease -EKG done in the ER independently read and interpreted showed heart rate of 92, sinus rhythm with first-degree AV block, no ST segment elevation or depression seen, no T-wave inversions seen. Vitals: - On arrival: Blood pressure 123/78, heart rate 92, respiratory rate 16, SpO2 98% on room air - Most recently: Blood pressure 125/73, heart rate 82, respiratory 18, SpO2 98% on room air Patient admitted to internal medicine service REVIEW OF SYSTEMS: Pertinent positives and negatives noted in HPI. The rest of the 14-point review of systems is negative. Physical Exam: General: nontoxic, no distress, appears at stated age Derm: warm, dry, intact Head: atraumatic, normocephalic, symmetric Eyes: EOMI, anicteric sclera Mouth: no lip lesion, mucus membranes moist Cardiovascular: S1 S2 reg, no murmur, rubs, or gallops Lungs: Slightly diminished breath sounds heard bilaterally Abdominal: soft, non-tender to palpataion, no appreciable organomegaly Extremities: no gross muscle atrophy, no edema, no contractures Neuro: Alert, Oriented, CNII-XII grossly intact, gait normal Psych: well appearing, appropriate affect Assessment and plan 84-year-old male with a PMH of CHF maintained on Lasix at home, CAD and CVA/TIA presents emergency department after referral from his primary care physician with concerns of pulmonary edema. #NSTEMI #Atypical chest pain r/o ACS #Acute on chronic HFrEF exacerbation - Trend troponins: 0.40 -> 0.39 - EKG done in the ED read and reviewed - Continue with aspirin 81 mg daily - Continue with Lipitor 40 mg nightly - Cardiac monitoring - Lasix 40 mg IVP every 12 hours - Strict I's and O's, daily weights - Monitor electrolytes daily - Heart healthy diet; n.p.o. after midnight - Echocardiogram ordered, currently pending - Cardiology consulted Chronic conditions: #CKD stage IIIb #Hypertension - Continue home medication once verified by pharmacy - Continue to monitor kidney function, avoid nephrotoxic agents when possible GI prophylaxis: None DVT prophylaxis: Currently on heparin drip The patient is admitted with an anticipated more than than 2 midnight stay for evaluation of NSTEMI and possible HFrEF exacerbation. CODE STATUS: Full code Discussed with: Patient Anticipated discharge place: Pending clinical course Dictation was produced using [employer] dictation software. please excuse any grammatical, word or spelling errors. Paul Carroll MD PGY-1 IM Past Medical History Past Medical History: CVA/TIA Additional Past Medical History / Comment(s): Mini-stroke 2008, no complications History of Any Multi-Drug Resistant Organisms: None Reported Past Surgical History: No Surgical Hx Reported Past Anesthesia/Blood Transfusion Reactions: No Reported Reaction Past Psychological History: No Psychological Hx Reported Smoking Status: Former smoker Past Alcohol Use History: None Reported Past Drug Use History: None Reported - Past Family History Father Family Medical History: No Reported History Medications and Allergies Home Medications Medication Instructions Recorded Confirmed Type Atorvastatin [Lipitor] 20 mg PO HS 02/26/25 02/26/25 History Ferrous Sulfate [Feosol] 325 mg PO Q3D 02/26/25 02/26/25 History Furosemide [Lasix] 40 mg PO DAILY 02/26/25 02/26/25 History Losartan [Cozaar] 25 mg PO DAILY 02/26/25 02/26/25 History Warfarin [Coumadin] 3 mg PO DAILY@1700 02/26/25 02/26/25 History carvediloL [Coreg] 6.25 mg PO BID-W/MEALS 02/26/25 02/26/25 History Allergies Allergy/AdvReac Type Severity Reaction Status Date / Time No Known Allergies Allergy Verified 02/26/25 20:08 Physical Exam Vitals: Vital Signs Temp Pulse Resp BP Pulse Ox 02/26/25 21:02 82 18 125/73 98 02/26/25 20:00 89 18 130/72 98 02/26/25 18:24 95 24 131/65 96 02/26/25 16:01 97.9 F 92 16 123/78 98 Intake and Output 02/26/25 02/26/25 02/27/25 14:59 22:59 06:59 Other: Weight 86.183 kg Results CBC & Chem 7: 02/26/25 17:37 02/26/25 19:00 Labs: Abnormal Lab Results - Last 24 Hours (Table) 02/26/25 02/26/25 02/26/25 Range/Units 17:37 17:37 17:37 MCHC 31.7 L (32.0-37.0) g/dL Eosinophils # 0.37 H (0.04-0.35) 10*3/uL PT 18.4 H (10.0-12.5) sec INR 1.8 H (<1.2) BUN (9-20) mg/dL Creatinine (0.66-1.25) mg/dL Glucose (74-99) mg/dL Troponin I 0.040 H* (0.000-0.034) ng/mL Total Protein (6.3-8.2) g/dL 02/26/25 02/26/25 Range/Units 19:00 21:32 MCHC (32.0-37.0) g/dL Eosinophils # (0.04-0.35) 10*3/uL PT (10.0-12.5) sec INR (<1.2) BUN 38 H (9-20) mg/dL Creatinine 1.78 H (0.66-1.25) mg/dL Glucose 116 H (74-99) mg/dL Troponin I 0.039 H* (0.000-0.034) ng/mL Total Protein 6.1 L (6.3-8.2) g/dL
[2025-02-27 04:04] LABS: INR 1.9 (<1.2)
[2025-02-27 04:11] LABS: Partial Thromboplastin Time 138.9 sec (22.0-30.0)
[2025-02-27 08:13] LABS: Basophils # (A) 0.06 X 10*3/uL (0.00-0.10); Basophils % (A) 0.7 %; Eosinophils # (A) 0.42 X 10*3/uL (0.04-0.35); Eosinophils % (A) 4.9 %; HCT 44.1 % (39.6-50.0); HGB 13.8 g/dL (13.0-17.0); Lymphocytes # (A) 1.81 X 10*3/uL (0.90-5.00); Lymphocytes % (A) 21.1 %; MCH 28.5 pg (27.0-32.0); MCHC 31.3 g/dL (32.0-37.0); MCV 91.1 FL (80.0-97.0); Mean Platelet Volume 10.6 FL (9.5-12.2); Monocytes # (A) 0.84 X 10*3/uL (0.20-1.00); Monocytes % (A) 9.8 %; NRBC Per 100 WBC 0 X 10*3/uL (0.00-0.01); Neutrophils # (A) 5.39 X 10*3/uL (1.80-7.70); Neutrophils % (A) 62.9 %; Platelet Count 178 X 10*3/uL (140-440); RBC 4.84 X 10*6/uL (4.40-5.60); WBC 8.57 X 10*3/uL (4.50-10.00)
[2025-02-27 08:26] LABS: ALT 16 U/L (10-49); AST 21 U/L (14-35); Albumin 4.2 g/dL (3.8-4.9); Alkaline Phosphatase 68 U/L (41-126); BUN/Creat Ratio 19.26 Ratio (12.00-20.00); Blood Urea Nitrogen 36.6 mg/dL (9.0-27.0); Carbon Dioxide 25.6 mmol/L (21.6-31.8); Chloride 106 mmol/L (96-109); Glucose 109 mg/dL (70-110); Potassium 4.3 mmol/L (3.5-5.5); Sodium 146 mmol/L (135-145); Total Bilirubin 0.5 mg/dL (0.3-1.2); Total Protein 6.2 g/dL (6.2-8.2)
[2025-02-27] MEDS: carvediloL 6.25 MG TAB PO SCH (08:47)
[2025-02-27] MEDS: FUROSEMIDE 10 MG/ML 4 ML VIAL IV SCH (08:54)
[2025-02-27] MEDS ORDERED: LOSARTAN 25 MG TAB PO SCH (09:00)
--- NOTE | 2025-02-27 10:56 | P.CRDCN ---
History of Present Illness History of present illness: HISTORY OF PRESENT ILLNESS: This is a 84-year-old male with a past medical history significant for aortic valve replacement, details unknown, CVA/TIA, hypertension, hyperlipidemia, and congestive heart failure. Patient states that he follows with a system controller in [facility] but he is unable to recall the name. We have been asked to see the patient in consultation for CHF. Patient examined at the bedside in the emergency room. Patient presented to the hospital for chief complaint of shortness of breath. He denied any chest pain or pressure. Patient was found to be in CHF and was started on IV Lasix. Additionally patient was found to have minimally elevated troponins and was started on IV heparin. His Coumadin was placed on hold. INR this morning 1.9. Patient does have a history of an aortic valve replacement. Patient does not have a mechanical click upon auscultation, however he is prescribed Coumadin for history of valve surgery per documentation. Patient is unsure if he had a mechanical valve or a bioprosthetic valve. DIAGNOSTICS: - EKG reveals sinus mechanism with IVCD. - Chest xray negative for acute process. - Laboratory data: WBC 8.57. Hemoglobin 13.8. Platelet count 178. INR 1.9. Sodium 146. Potassium 4.3. BUN 36. Creatinine 1.9. Troponin 0.040. 0.039. 0.039. proBNP 2830. - Current home cardiac medications include carvedilol 6.25 mg twice a day, warfarin 3 mg daily, losartan 25 mg daily, Lasix 40 mg daily, atorvastatin 20 mg at night. - Most recent echocardiogram obtained in 2019 revealed ejection fraction 45 to 50%, moderate concentric LVH, moderate aortic stenosis - Cardiac catheterization history: Unknown REVIEW OF SYSTEMS: At the time of my exam: CONSTITUTIONAL: Denies fever or chills. HEENT: Denies blurred vision, vision changes, or eye pain. Denies hemoptysis CARDIOVASCULAR: Denies chest pain. Denies orthopnea. Denies PND. Denies palpitations RESPIRATORY: Denies shortness of breath. GASTROINTESTINAL: Denies abdominal pain. Denies nausea or vomiting. HEMATOLOGIC: Denies bleeding disorders. GENITOURINARY: Denies any blood in urine. SKIN: Denies pruitis. Denies rash. PHYSICAL EXAM: VITAL SIGNS: Reviewed. GENERAL: Well-developed in no acute distress. HEENT: Head is normocephalic. Pupils are equal, round. Sclerae anicteric. Mucous membranes of the mouth are moist. Neck supple. No JVD or thyromegaly LUNGS: Respirations even and unlabored. Lungs essentially clear to auscultation bilaterally. HEART: Regular rate and rhythm. S1 and S2 heard. ABDOMEN: Soft. Nondistended. Nontender. EXTREMITIES: Normal range of motion. No clubbing or cyanosis. Peripheral pulses intact. No lower extremity edema NEUROLOGIC: Awake and alert. Oriented x 3. ASSESSMENT: Shortness of breath Acute on chronic heart failure with mildly reduced EF, EF 45 to 50% in 2019 History of aortic valve replacement, unsure if mechanical or bioprosthetic, no mechanical click upon auscultation, however on Coumadin outpatient Elevated troponins, flat, type II OR secondary to oxygen supply/demand mismatch Chronic kidney disease History of CVA/TIA History of hypertension History of hyperlipidemia PLAN: An acute coronary event has been ruled out Resume home cardiac medications Continue IV Lasix 40 mg every 12 hours Daily weights, accurate intake and output, and monitoring of kidney function Patient with history of aortic valve replacement. Unsure if mechanical or bioprosthetic. Patient is unsure as well. No mechanical click noted upon auscultation. However patient is on Coumadin outpatient supposedly due to valve replacement. Will resume Coumadin tonight with increased dose of 4 mg. Continue IV heparin until INR is therapeutic. Obtain records from patient's primary system controller in [place] Further recommendations pending patient course Nurse practitioner note has been reviewed by physician. Signing provider agrees with the documented findings, assessment, and plan of care documented by [employer] as a scribe. Past Medical History Past Medical History: CVA/TIA Additional Past Medical History / Comment(s): Mini-stroke 2008, no complications History of Any Multi-Drug Resistant Organisms: None Reported Past Surgical History: No Surgical Hx Reported Past Anesthesia/Blood Transfusion Reactions: No Reported Reaction Past Psychological History: No Psychological Hx Reported Smoking Status: Former smoker Past Alcohol Use History: None Reported Past Drug Use History: None Reported - Past Family History Father Family Medical History: No Reported History Medications and Allergies Home Medications Medication Instructions Recorded Confirmed Type Atorvastatin [Lipitor] 20 mg PO HS 02/26/25 02/26/25 History Ferrous Sulfate [Feosol] 325 mg PO Q3D 02/26/25 02/26/25 History Furosemide [Lasix] 40 mg PO DAILY 02/26/25 02/26/25 History Losartan [Cozaar] 25 mg PO DAILY 02/26/25 02/26/25 History Warfarin [Coumadin] 3 mg PO DAILY@1700 02/26/25 02/26/25 History carvediloL [Coreg] 6.25 mg PO BID-W/MEALS 02/26/25 02/26/25 History Allergies Allergy/AdvReac Type Severity Reaction Status Date / Time No Known Allergies Allergy Verified 02/26/25 20:08 Physical Exam Vitals: Vital Signs Temp Pulse Resp BP Pulse Ox 02/27/25 08:45 97.8 F 60 18 135/92 95 02/27/25 06:04 64 16 150/76 97 02/27/25 04:00 98.2 F 70 18 135/86 97 02/27/25 02:30 73 17 134/74 98 02/27/25 00:00 64 19 144/78 97 02/26/25 21:02 82 18 125/73 98 02/26/25 20:00 89 18 130/72 98 02/26/25 18:24 95 24 131/65 96 02/26/25 16:01 97.9 F 92 16 123/78 98 Intake and Output 02/26/25 02/27/25 02/27/25 22:59 06:59 14:59 Intake Total 74.667 Output Total 500 700 Balance -425.333 -700 Intake: Intake, IV Titration 74.667 Amount Heparin Sod,Pork in 0.45% 74.667 NaCl 25,000 unit In 0.45 % NaCl 1 250ml.bag @ 11. 603 UNITS/KG/HR 10 mls/hr IV .Q24H [facility] Rx#: [id number] Output: Urine 500 700 Other: # Voids 3 Weight 86.183 kg Results 02/27/25 02:38 02/27/25 02:38 Cardiac Enzymes 02/26/25 02/26/25 02/26/25 Range/Units 17:37 19:00 21:32 AST 22 (17-59) U/L Troponin I 0.040 H* 0.039 H* (0.000-0.034) ng/mL 02/27/25 02/27/25 Range/Units 02:38 02:38 AST 21 (17-59) U/L Troponin I 0.039 H* (0.000-0.034) ng/mL Coagulation 02/26/25 02/27/25 Range/Units 17:37 02:38 PT 18.4 H 19.0 H (10.0-12.5) sec APTT 27.8 138.9 H* (22.0-30.0) sec CBC 02/26/25 02/27/25 Range/Units 17:37 02:38 WBC 9.50 8.57 (4.50-10.00) 10*3/uL RBC 5.07 4.84 (4.40-5.60) 10*6/uL Hgb 14.7 13.8 (13.0-17.0) g/dL Hct 46.3 44.1 (39.6-50.0) % Plt Count 201 178 (140-440) 10*3/uL Comprehensive Metabolic Panel 02/26/25 02/27/25 Range/Units 19:00 02:38 Sodium 141 146 H (137-145) mmol/L Potassium 4.0 4.3 (3.5-5.1) mmol/L Chloride 104 106 (98-107) mmol/L Carbon Dioxide 28 25.6 (22-30) mmol/L BUN 38 H 36.6 H (9-20) mg/dL Creatinine 1.78 H 1.9 H (0.66-1.25) mg/dL Glucose 116 H 109 (74-99) mg/dL Calcium 9.0 9.0 (8.4-10.2) mg/dL AST 22 21 (17-59) U/L ALT 16 16 (4-49) U/L Alkaline Phosphatase 65 68 (38-126) U/L Total Protein 6.1 L 6.2 (6.3-8.2) g/dL Albumin 3.8 4.2 (3.5-5.0) g/dL Current Medications Generic Name Dose Route Start Last Admin Trade Name Freq PRN Reason Stop Dose Admin Atorvastatin Calcium 40 mg 02/26/25 23:30 02/27/25 00:24 Atorvastatin 40 Mg Tab PO 40 mg HS [facility] Administration Carvedilol 6.25 mg 02/27/25 07:30 02/27/25 08:47 Carvedilol 6.25 Mg Tab PO 6.25 mg BID-W/MEALS [facility] Administration Furosemide 40 mg 02/27/25 09:00 02/27/25 08:54 Furosemide 10 Mg/Ml 4 Ml Vial IV 40 mg Q12HR [facility] Administration Heparin Sodium (Porcine) 0 unit 02/26/25 20:03 Heparin Sodium 1,000 Un/Ml (10ml Vl) IV PER PROTOCOL PRN Low PTT Protocol Heparin Sodium/Sodium Chloride 250 mls @ 10 mls/hr 02/26/25 20:15 02/27/25 05:47 25,000 unit/ Sodium Chloride IV 8.12 units/kg/hr .Q24H [facility] 7 mls/hr Titration Protocol 11.603 UNITS/KG/HR Miscellaneous Information 1 each 02/27/25 08:50 Warfarin Per Pharmacy MISCELLANE DIRECTED PRN Per Protocol Protocol Naloxone HCl 0.2 mg 02/26/25 19:52 Naloxone 0.4 Mg/Ml 1 Ml Vial IV Q2M PRN Opioid Reversal Ondansetron HCl 4 mg 02/26/25 19:52 Ondansetron 4 Mg/2 Ml Vial IVP Q8HR PRN Nausea And Vomiting Warfarin Sodium 4 mg 02/27/25 18:00 Warfarin 2 Mg Tab PO 02/27/25 18:01 ONCE@1800 ONE Protocol Intake and Output 02/26/25 02/27/25 02/27/25 22:59 06:59 14:59 Intake Total 74.667 Output Total 500 700 Balance -425.333 -700 Intake: Intake, IV Titration 74.667 Amount Heparin Sod,Pork in 0.45% 74.667 NaCl 25,000 unit In 0.45 % NaCl 1 250ml.bag @ 11. 603 UNITS/KG/HR 10 mls/hr IV .Q24H [facility] Rx#: [id number] Output: Urine 500 700 Other: # Voids 3 Weight 86.183 kg 02/27/25 02:38 02/27/25 02:38
--- NOTE | 2025-02-27 16:29 | P.PN ---
Subjective Progress Note Date: 02/27/25 Hospital course: Patient is a very pleasant 84-year-old male with a past medical history of chronic systolic heart failure, aortic stenosis status post aortic valve replacement on Coumadin, hypertension, hyperlipidemia, previous CVA, iron deficiency anemia, and CKD stage IIIb. He presented to the hospital on 02/26/2025 secondary to reports of shortness of breath. Patient was sent to ER by his PCP secondary to concerns of pulmonary edema. Upon arrival to our facility, patient underwent evaluation in the emergency department. Vital signs upon arrival show blood pressure 123/78, heart rate 92, respiratory rate 16, temp 97.9 F, and SpO2 of 98% on room air. EKG was completed showing sinus mechanism at 92 bpm with an intraventricular conduction delay and T wave abnormalities in anterior/lateral leads I, aVL, and V2. Chest x-ray negative for acute cardiopulmonary process. Labs completed and reviewed. CBC showing a low MCHC of 31.7 otherwise normal findings. BMP consistent with known CKD stage IIIb with BUN of 38, creatinine 1.78, GFR of 35. Blood glucose 116. Magnesium 2.1. Liver profile normal findings. Troponin was elevated at 0.040 with proBNP of 2830. INR subtherapeutic at 1.8. Patient was started on heparin infusion and admitted under our services with consultation to cardiology. Troponins trended resulting at 0.040, 0.039, 0.039. Physical exam: Vital signs reviewed and stable. General: Nontoxic, no distress and appears stated age. Derm: Skin warm and dry, normal coloration for ethnicity. Head: Atraumatic, normocephalic and symmetric. Eyes: EOM's intact, no lid lag, and anicteric sclera Mouth: no lip lesions, mucus membranes moist Cardiovascular: regular rate and rhythm with normal S1S2, systolic murmur, positive posterior tibial pulses bilaterally, and cap refill < 2 seconds. Lungs: Respirations even, regular, and unlabored on room air. Lungs CTA bi laterally, no rhonchi, no rales, no wheezing, and no accessory muscle usage. Abdominal: soft, nontender to palpation, no guarding, no appreciable organomegaly Ext: ROM intact. No gross muscle atrophy, no edema, no contractures Neuro: Speech clear, face symmetrical and CN II-XII grossly intact with no noted focal neuro deficits Psych: Alert and oriented to person, place, time, and situation. Appropriate and pleasant affect. Assessment and Plan of Care: Acute on chronic systolic heart failure exacerbation Elevated troponins, secondary to above Hypertension Hyperlipidemia History of aortic valve replacement Chest pain, rule out acute coronary event -Cardiology consulted, appreciate recommendations -Telemetry monitoring -Troponins trended and flat, resulting at 0.040, 0.039, 0.039. -Continue IV Lasix 40 mg IVP every 12 hours. -Closely monitor I's and O's and daily weights. -Continue anticoagulation with low intensity heparin infusion pending further recommendations from cardiology and will begin bridging Coumadin with goal INR of 2.5-3.5 -Patient to otherwise continue daily medication regimen with aspirin 81 mg daily, atorvastatin 40 mg nightly, carvedilol 6.25 mg twice daily with meals. -Echocardiogram History of CVA -Continue aspirin 81 mg daily and atorvastatin 40 mg nightly. Patient denies any residual deficits. Stage IIIb chronic kidney disease Renal function appears to be at baseline and stable. Will continue to monitor with repeat a.m. labs. Data and imaging reviewed: Morning labs reviewed. CBC showing MCHC of 31.3 and RDW of 15.0. Coagulation profile showing supratherapeutic PTT of 138.9 and continued subtherapeutic INR of 1.9. BMP showing sodium 146, anion gap 14.40, BUN 36.6, creatinine 1.9, GFR of 35. Blood glucose 109. Troponins trended resulting at 0.040, 0.039, 0.039. - Blood pressure 135/92, heart rate 60, respiratory rate 18, temp 97.8 F, and SpO2 of 95% on room air CODE STATUS: Full code DVT prophylaxis: Heparin infusion Anticipated discharge date: Pending clinical course Anticipated discharge place: Home Patient was seen independently by Nurse Pracitioner. This document was prepared using [employer] dictation software. Please allow for errors in language instructor, while rare they do occur. Artem Braxton NP rendered care for this patient independently, reviewed the findings and plan as documented in the note above and agree with plan. I did not physically speak with or examine the patient on this date. Objective - Vital Signs Vital signs: Vital Signs Temp 98.2 F 02/27/25 04:00 Pulse 64 02/27/25 06:04 Resp 16 02/27/25 06:04 BP 150/76 02/27/25 06:04 Pulse Ox 97 02/27/25 06:04 FiO2 Intake & Output 02/26/25 02/27/25 02/27/25 18:59 06:59 18:59 Intake Total 74.667 Output Total 500 Balance -425.333 Weight 86.183 kg Intake: Intake, IV Titration 74.667 Amount Heparin Sod,Pork in 0.45% 74.667 NaCl 25,000 unit In 0.45 % NaCl 1 250ml.bag @ 11. 603 UNITS/KG/HR 10 mls/hr IV .Q24H [facility] Rx#: [id number] Output: Urine 500 Other: # Voids 3 - Labs CBC & Chem 7: 02/27/25 02:38 02/27/25 02:38 Labs: Abnormal Lab Results - Last 24 Hours (Table) 02/26/25 02/26/25 02/26/25 Range/Units 17:37 17:37 17:37 MCHC 31.7 L (32.0-37.0) g/dL RDW (11.5-14.5) % Immature Gran # (0.00-0.04) X 10*3/uL Eosinophils # 0.37 H (0.04-0.35) 10*3/uL PT 18.4 H (10.0-12.5) sec INR 1.8 H (<1.2) APTT (22.0-30.0) sec Sodium (135-145) mmol/L Anion Gap (4.00-12.00) mmol/L BUN (9-20) mg/dL Creatinine (0.66-1.25) mg/dL Est GFR (CKD-EPI) (>=60) Glucose (74-99) mg/dL Troponin I 0.040 H* (0.000-0.034) ng/mL Total Protein (6.3-8.2) g/dL 02/26/25 02/26/25 02/27/25 Range/Units 19:00 21:32 02:38 MCHC (32.0-37.0) g/dL RDW (11.5-14.5) % Immature Gran # (0.00-0.04) X 10*3/uL Eosinophils # (0.04-0.35) 10*3/uL PT 19.0 H (10.0-12.5) sec INR 1.9 H (<1.2) APTT 138.9 H* (22.0-30.0) sec Sodium (135-145) mmol/L Anion Gap (4.00-12.00) mmol/L BUN 38 H (9-20) mg/dL Creatinine 1.78 H (0.66-1.25) mg/dL Est GFR (CKD-EPI) (>=60) Glucose 116 H (74-99) mg/dL Troponin I 0.039 H* (0.000-0.034) ng/mL Total Protein 6.1 L (6.3-8.2) g/dL 02/27/25 02/27/25 02/27/25 Range/Units 02:38 02:38 02:38 MCHC 31.3 L (32.0-37.0) g/dL RDW 15.0 H (11.5-14.5) % Immature Gran # 0.05 H (0.00-0.04) X 10*3/uL Eosinophils # 0.42 H (0.04-0.35) 10*3/uL PT (10.0-12.5) sec INR (<1.2) APTT (22.0-30.0) sec Sodium 146 H (135-145) mmol/L Anion Gap 14.40 H (4.00-12.00) mmol/L BUN 36.6 H (9-20) mg/dL Creatinine 1.9 H (0.66-1.25) mg/dL Est GFR (CKD-EPI) 35 L (>=60) Glucose (74-99) mg/dL Troponin I 0.039 H* (0.000-0.034) ng/mL Total Protein (6.3-8.2) g/dL
[2025-02-27] MEDS: FERROUS SULFATE 325 MG TAB PO SCH (18:06)
--- NOTE | 2025-02-27 18:08 | CA ---
Transthoracic Echo Report Name: Pato Gilmore Age: 84 Gender: M : 1940 Exam Date: 02/27/2025 09:36 Exam Location: [place] [facility] Ht (in): 71 Wt (lb): 190 Ordering Physician: Ramos Schultz MD Attending/Referring Phys: Exchange Teller Neeru Jasso RDCS Procedure CPT: Indications: chf Cardiac Hx: AVR, bypass x2 Technical Quality: Technically difficult study Contrast 1: Definity Total Dose (mL): 5 Contrast 2: Total Dose (mL): MEASUREMENTS (Male / Female) Normal Values 2D ECHO LV Diastolic Diameter PLAX 4.0 cm 4.2 - 5.9 / 3.9 - 5.3 cm LV Systolic Diameter PLAX 3.1 cm IVS Diastolic Thickness 1.6 cm 0.6 - 1.0 / 0.6 - 0.9 cm LVPW Diastolic Thickness 0.7 cm 0.6 - 1.0 / 0.6 - 0.9 cm LV Relative Wall Thickness 0.6 LVOT Diameter 1.5 cm LA Volume 87.9 cm??? 18 - 58 / 22 - 52 cm??? LA Volume Index 42.0 cm???/m??? 16 - 28 cm???/m??? DOPPLER AV Peak Velocity 212.9 cm/s AV Peak Gradient 18.1 mmHg AV Mean Velocity 147.6 cm/s AV Mean Gradient 9.9 mmHg AV Velocity Time Integral 43.3 cm LVOT Peak Velocity 90.7 cm/s LVOT Peak Gradient 3.3 mmHg LVOT Velocity Time Integral 18.6 cm LVOT Stroke Volume 34.9 cm??? LVOT Stroke Volume Index 16.9 ml/m??? LVOT Cardiac Index 1053.3 cm???/min???m??? AV Area Cont Eq vti 0.8 cm??? AV Area Cont Eq pk 0.8 cm??? PV Peak Velocity 92.5 cm/s PV Peak Gradient 3.4 mmHg FINDINGS Left Ventricle Left ventricular ejection fraction is estimated at 30-35 %. Moderately increased septal wall thickness. Left ventricle not well visualized. Right Ventricle Right ventricle not well visualized. Unable to estimate the right ventricular systolic pressure. Right Atrium Right atrium not well visualized. Left Atrium Severely increased left atrial volume. Moderately increased left atrial area. Mitral Valve Mitral valve thickened. No evidence for mitral valve prolapse. No mitral stenosis. Trace mitral regurgitation. Aortic Valve Bioprosthetic aortic valve without stenosis with a peak velocity of 2.1 m/s, peak gradient 18 mmHg, mean gradient 10 mmHg, and estimated aortic valve area of 0.8 cm???. No paravalvular aortic regurgitation. No central aortic regurgitation. Tricuspid Valve Structurally normal tricuspid valve. No tricuspid stenosis. Trace tricuspid regurgitation. Pulmonic Valve Structurally normal pulmonic valve. No pulmonic stenosis. No pulmonic regurgitation. Pericardium No pericardial effusion. Aorta Normal size aortic root and proximal ascending aorta. CONCLUSIONS Diagnosis: Congestive heart failure Reduced LV systolic function ejection fraction 35% Bioprosthetic aortic valve with acceptable gradients. Peak gradient 18 and mean gradient 10 mmHg Previewed by: Dr. Deandre Chacko MD (Electronically Signed) Final Date: 27 Feb 2025 18:07
[2025-02-27] MEDS: WARFARIN 2 MG TAB PO ONE (18:51)
[2025-02-28] MEDS ORDERED: ACETAMINOPHEN TAB 325 MG TAB PO PRN (06:56)
[2025-02-28 06:58] LABS: INR 1.6 (<1.2); Partial Thromboplastin Time 38.1 sec (22.0-30.0); Prothrombin Time 16.2 sec (10.0-12.5)
[2025-02-28] MEDS: FUROSEMIDE 40 MG TAB PO SCH (08:04)
[2025-02-28] MEDS: SPIRONOLACTONE 25 MG TAB PO SCH (08:04)
[2025-02-28] MEDS: ASPIRIN 81 MG PO SCH (08:04)
[2025-02-28] MEDS: HEPARIN SODIUM 1,000 UN/ML (10ML VL) IV PRN (08:06)
[2025-02-28] MEDS ORDERED: HYDROcodone/APAP 5-325MG 1 EACH TAB PO PRN (08:47)
--- NOTE | 2025-02-28 10:21 | P.PN ---
Subjective HISTORY OF PRESENT ILLNESS: This is a 84-year-old male with a past medical history significant for aortic valve replacement, details unknown, CVA/TIA, hypertension, hyperlipidemia, and congestive heart failure. Patient states that he follows with a rubber and plastics worker in [facility] but he is unable to recall the name. [facility] Patient examined at the bedside in the emergency room. Patient presented to the hospital for chief complaint of shortness of breath. He denied any chest pain or pressure. Patient was found to be in CHF and was started on IV Lasix. Additionally patient was found to have minimally elevated troponins and was started on IV heparin. His Coumadin was placed on hold. INR this morning 1.9. Patient does have a history of an aortic valve replacement. Patient does not have a mechanical click upon auscultation, however he is prescribed Coumadin for history of valve surgery per documentation. Patient is unsure if he had a mechanical valve or a bioprosthetic valve. DIAGNOSTICS: - EKG reveals sinus mechanism with IVCD. - Chest xray negative for acute process. - Laboratory data: WBC 8.57. Hemoglobin 13.8. Platelet count 178. INR 1.9. Sodium 146. Potassium 4.3. BUN 36. Creatinine 1.9. Troponin 0.040. 0.039. 0.039. proBNP 2830. - Current home cardiac medications include carvedilol 6.25 mg twice a day, warfarin 3 mg daily, losartan 25 mg daily, Lasix 40 mg daily, atorvastatin 20 mg at night. - Most recent echocardiogram obtained in 2019 revealed ejection fraction 45 to 50%, moderate concentric LVH, moderate aortic stenosis - Cardiac catheterization history: Unknown 02/28/2025 Patient examined this morning at bedside. Patient denies any chest pain or pressure. He denies any shortness of breath. Vital signs are stable. Patient's INR 1.6 today. He remains on Coumadin and IV heparin. Echocardiogram completed revealing ejection fraction 30 to 35%, bioprosthetic aortic valve with peak gradient 18 mmHg and mean gradient 10 mmHg, no perivalvular aortic regurgitation, trace mitral regurgitation, trace tricuspid regurgitation. PHYSICAL EXAM: VITAL SIGNS: Reviewed. GENERAL: Well-developed in no acute distress. HEENT: Head is normocephalic. Pupils are equal, round. Sclerae anicteric. Mucous membranes of the mouth are moist. Neck supple. No JVD or thyromegaly LUNGS: Respirations even and unlabored. Lungs essentially clear to auscultation bilaterally. HEART: Regular rate and rhythm. S1 and S2 heard. ABDOMEN: Soft. Nondistended. Nontender. EXTREMITIES: Normal range of motion. No clubbing or cyanosis. Peripheral pulses intact. No lower extremity edema NEUROLOGIC: Awake and alert. Oriented x 3. ASSESSMENT: Shortness of breath Acute on chronic heart failure with reduced EF, 3035 History of bioprosthetic aortic valve replacement Chronic anticoagulation with Coumadin on an outpatient basis, unknown reason, patient denies history of A-fib Elevated troponins, flat, type II ID secondary to oxygen supply/demand mismatch Chronic kidney disease History of CVA/TIA History of hypertension History of hyperlipidemia PLAN: An acute coronary event has been ruled out Discontinue IV Lasix Begin oral Lasix 40 mg twice daily Add Aldactone 25 mg daily Continue Coumadin. Continue IV heparin until INR is 2.0 or greater. Echo reveals patient has a bioprosthetic aortic valve. Unsure of reason why patient is on Coumadin. He denies any known history of atrial fibrillation. We are still awaiting records from patient's primary rubber and plastics worker in [place]. Possible discharge home tomorrow. Further recommendations pending patient course Nurse practitioner note has been reviewed by physician. Signing provider agrees with the documented findings, assessment, and plan of care documented by [employer] as a scribe. Objective - Vital Signs Vital signs: Vital Signs Temp 97.6 F 02/28/25 06:45 Pulse 96 02/28/25 06:45 Resp 16 02/28/25 06:45 BP 126/81 02/28/25 06:45 Pulse Ox 98 02/28/25 06:45 FiO2 Intake & Output 02/27/25 02/28/25 02/28/25 18:59 06:59 18:59 Intake Total 287.6 89.367 165.133 Output Total 820 400 115 Balance -532.4 -310.633 50.133 Weight 86.183 kg 86.9 kg Intake: Intake, IV Titration 47.6 89.367 47.133 Amount Heparin Sod,Pork in 0.45% 47.6 89.367 47.133 NaCl 25,000 unit In 0.45 % NaCl 1 250ml.bag @ 11. 603 UNITS/KG/HR 10 mls/hr IV .Q24H [facility] Rx#: [id number] Oral 240 118 Output: Urine 820 400 115 Other: Voiding Method Toilet Toilet # Voids 2 - Labs CBC & Chem 7: 02/27/25 02:38 02/27/25 02:38 Labs: Abnormal Lab Results - Last 24 Hours (Table) 02/27/25 02/28/25 Range/Units 11:49 06:11 PT 16.2 H (10.0-12.5) sec INR 1.6 H (<1.2) APTT 49.7 H 38.1 H (22.0-30.0) sec
[2025-02-28] MEDS: CAPSAICIN 0.025% CREAM 60 GM TUBE TOPICAL SCH (10:24)
[2025-02-28 10:40] LABS: BUN/Creat Ratio 21.11 Ratio (12.00-20.00); Calcium 9.5 mg/dL (8.7-10.3); Carbon Dioxide 27.6 mmol/L (21.6-31.8); Chloride 101 mmol/L (96-109); Glucose 135 mg/dL (70-110); HCT 52.2 % (39.6-50.0); MCH 28.5 pg (27.0-32.0); MCHC 30.7 g/dL (32.0-37.0); Magnesium 2.2 mg/dL (1.5-2.4); Mean Platelet Volume 10.5 FL (9.5-12.2); NRBC Per 100 WBC 0 X 10*3/uL (0.00-0.01); Platelet Count 220 X 10*3/uL (140-440); Potassium 4.4 mmol/L (3.5-5.5); RBC 5.61 X 10*6/uL (4.40-5.60); RDW 15.1 % (11.5-14.5); Sodium 142 mmol/L (135-145); WBC 13.74 X 10*3/uL (4.50-10.00)
--- NOTE | 2025-02-28 15:54 | P.PN ---
Subjective Progress Note Date: 02/28/25 Hospital course: Patient is a very pleasant 84-year-old male with a past medical history of chronic systolic heart failure, aortic stenosis status post aortic valve replacement (echocardiogram showing bioprosthetic valve) unclear why patient is on Coumadin pending records from cardiology office, hypertension, hyperlipidemia, previous CVA, iron deficiency anemia, and CKD stage IIIb. He presented to the hospital on 02/26/2025 secondary to reports of shortness of breath. Patient was sent to ER by his PCP secondary to concerns of pulmonary edema. Upon arrival to our facility, patient underwent evaluation in the emergency department. Vital signs upon arrival show blood pressure 123/78, heart rate 92, respiratory rate 16, temp 97.9 F, and SpO2 of 98% on room air. EKG was completed showing sinus mechanism at 92 bpm with an intraventricular conduction delay and T wave abnormalities in anterior/lateral leads I, aVL, and V2. Chest x-ray negative for acute cardiopulmonary process. Labs completed and reviewed. CBC showing a low MCHC of 31.7 otherwise normal findings. BMP consistent with known CKD stage IIIb with BUN of 38, creatinine 1.78, GFR of 35. Blood glucose 116. Magnesium 2.1. Liver profile normal findings. Troponin was elevated at 0.040 with proBNP of 2830. INR subtherapeutic at 1.8. Patient was started on heparin infusion and admitted under our services with consultation to cardiology. Troponins trended resulting at 0.040, 0.039, 0.039. Echocardiogram completed showing a reduced EF of 30 to 35% with bioprosthetic aortic valve. Physical exam: Patient seen and fully evaluated at bedside this morning. He reports his breathing has improved and currently denies having any complaints at this time. He denies headache, lightheadedness, dizziness, chest pain, palpitations, or any other complaints. Patient does continue to have nonproductive cough noted during examination. Vital signs reviewed and stable. General: Nontoxic, no distress and appears stated age. Derm: Skin warm and dry, normal coloration for ethnicity. Head: Atraumatic, normocephalic and symmetric. Eyes: EOM's intact, no lid lag, and anicteric sclera Mouth: no lip lesions, mucus membranes moist Cardiovascular: regular rate and rhythm with normal S1S2, systolic murmur, positive posterior tibial pulses bilaterally, and cap refill < 2 seconds. Lungs: Respirations even, regular, and unlabored on room air. Lungs slightly diminished otherwise no rhonchi, no rales, no wheezing, and no accessory muscle usage. Abdominal: soft, nontender to palpation, no guarding, no appreciable organomeg rob Ext: ROM intact. No gross muscle atrophy, no edema, no contractures Neuro: Speech clear, face symmetrical and CN II-XII grossly intact with no noted focal neuro deficits Psych: Alert and oriented to person, place, time, and situation. Appropriate and pleasant affect. 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 -Continue IV Lasix 40 mg IVP every 12 hours. -Closely monitor I's and O's and daily weights. -Continue anticoagulation with low intensity heparin infusion pending further recommendations from cardiology and will begin bridging Coumadin with goal INR of 2.0-3.0 -Patient to otherwise continue daily medication regimen with aspirin 81 mg daily, atorvastatin 40 mg nightly, carvedilol 6.25 mg twice daily with meals. -Echocardiogram History of CVA -Continue aspirin 81 mg daily and atorvastatin 40 mg nightly. Patient denies any residual deficits. Stage IIIb chronic kidney disease Renal function appears to be at baseline and stable. Will continue to monitor with repeat a.m. labs. Data and imaging reviewed: Morning labs reviewed. INR remains subtherapeutic at 1.6. CBC showing mild leukocytosis with WBC count of 13.74 otherwise no significant abnormalities. BMP showing elevated anion gap of 13.40, BUN of 38.0, creatinine 1.8, and GFR of 37. Blood glucose was 135. Magnesium 2.2 - Vital signs reviewed. Blood pressure 126/81, heart rate 96, respiratory rate 16, temp 97.6 F, and SpO2 of 98% on room air -Echocardiogram completed showing a reduced EF of 30 to 35% with bioprosthetic aortic valve. CODE STATUS: Full code DVT prophylaxis: Heparin infusion bridging until therapeutic INR Anticipated discharge date: Pending clinical course, possible discharge home tomorrow pending therapeutic INR Anticipated discharge place: Home Patient was seen independently by Nurse Pracitioner. This document was prepared using [employer] dictation software. Please allow for errors in quality nurse, while rare they do occur. Artem Braxton NP rendered care for this patient independently, reviewed the findings and plan as documented in the note above and agree with plan. I did not physically speak with or examine the patient on this date. Objective - Vital Signs Vital signs: Vital Signs Temp 97.6 F 02/28/25 06:45 Pulse 96 02/28/25 06:45 Resp 16 02/28/25 06:45 BP 126/81 02/28/25 06:45 Pulse Ox 98 02/28/25 06:45 FiO2 Intake & Output 02/27/25 02/28/25 02/28/25 18:59 06:59 18:59 Intake Total 287.6 89.367 165.133 Output Total 820 400 115 Balance -532.4 -310.633 50.133 Weight 86.183 kg 86.9 kg Intake: Intake, IV Titration 47.6 89.367 47.133 Amount Heparin Sod,Pork in 0.45% 47.6 89.367 47.133 NaCl 25,000 unit In 0.45 % NaCl 1 250ml.bag @ 11. 603 UNITS/KG/HR 10 mls/hr IV .Q24H [facility] Rx#: [id number] Oral 240 118 Output: Urine 820 400 115 Other: Voiding Method Toilet # Voids 2 - Labs CBC & Chem 7: 02/28/25 06:11 02/28/25 06:11 Labs: Abnormal Lab Results - Last 24 Hours (Table) 02/27/25 02/28/25 Range/Units 11:49 06:11 PT 16.2 H (10.0-12.5) sec INR 1.6 H (<1.2) APTT 49.7 H 38.1 H (22.0-30.0) sec
[2025-02-28] MEDS: WARFARIN 2 MG TAB PO ONE (18:02)
[2025-03-01 06:49] LABS: Prothrombin Time 20.3 sec (10.0-12.5)
[2025-03-01 06:50] LABS: Partial Thromboplastin Time 42.4 sec (22.0-30.0)
[2025-03-01 08:02] VITALS: BP 122/81; PULSE 94; RESP 16; TEMP 98.1
[2025-03-01 09:39] LABS: Calcium 8.9 mg/dL (8.7-10.3); Carbon Dioxide 23.8 mmol/L (21.6-31.8); Chloride 99 mmol/L (96-109); Glucose 128 mg/dL (70-110); Magnesium 2.2 mg/dL (1.5-2.4); Potassium 4.7 mmol/L (3.5-5.5); Sodium 137 mmol/L (135-145)
[2025-03-01 10:52] LABS: HCT 46.6 % (39.6-50.0); HGB 14.8 g/dL (13.0-17.0); MCHC 31.8 g/dL (32.0-37.0); MCV 91.4 FL (80.0-97.0); Mean Platelet Volume 10.9 FL (9.5-12.2); NRBC Per 100 WBC 0 X 10*3/uL (0.00-0.01); Platelet Count 189 X 10*3/uL (140-440); RDW 14.9 % (11.5-14.5); WBC 13.89 X 10*3/uL (4.50-10.00)
--- NOTE | 2025-03-01 11:39 | P.PN ---
Subjective HISTORY OF PRESENT ILLNESS: This is a 84-year-old male with a past medical history significant for aortic valve replacement, details unknown, CVA/TIA, hypertension, hyperlipidemia, and congestive heart failure. Patient states that he follows with a volleyball player in [facility] but he is unable to recall the name. [facility] Patient examined at the bedside in the emergency room. Patient presented to the hospital for chief complaint of shortness of breath. He denied any chest pain or pressure. Patient was found to be in CHF and was started on IV Lasix. Additionally patient was found to have minimally elevated troponins and was started on IV heparin. His Coumadin was placed on hold. INR this morning 1.9. Patient does have a history of an aortic valve replacement. Patient does not have a mechanical click upon auscultation, however he is prescribed Coumadin for history of valve surgery per documentation. Patient is unsure if he had a mechanical valve or a bioprosthetic valve. DIAGNOSTICS: - EKG reveals sinus mechanism with IVCD. - Chest xray negative for acute process. - Laboratory data: WBC 8.57. Hemoglobin 13.8. Platelet count 178. INR 1.9. Sodium 146. Potassium 4.3. BUN 36. Creatinine 1.9. Troponin 0.040. 0.039. 0.039. proBNP 2830. - Current home cardiac medications include carvedilol 6.25 mg twice a day, warfarin 3 mg daily, losartan 25 mg daily, Lasix 40 mg daily, atorvastatin 20 mg at night. - Most recent echocardiogram obtained in 2019 revealed ejection fraction 45 to 50%, moderate concentric LVH, moderate aortic stenosis - Cardiac catheterization history: Unknown 02/28/2025 Patient examined this morning at bedside. Patient denies any chest pain or pressure. He denies any shortness of breath. Vital signs are stable. Patient's INR 1.6 today. He remains on Coumadin and IV heparin. Echocardiogram completed revealing ejection fraction 30 to 35%, bioprosthetic aortic valve with peak gradient 18 mmHg and mean gradient 10 mmHg, no perivalvular aortic regurgitation, trace mitral regurgitation, trace tricuspid regurgitation. 03/01/2025 Patient examined this morning at the bedside. Patient currently denies chest pain or pressure. He denies shortness of breath. INR today 2.0. He remains on IV heparin. PHYSICAL EXAM: VITAL SIGNS: Reviewed. GENERAL: Well-developed in no acute distress. HEENT: Head is normocephalic. Pupils are equal, round. Sclerae anicteric. Mucous membranes of the mouth are moist. Neck supple. No JVD or thyromegaly LUNGS: Respirations even and unlabored. Lungs essentially clear to auscultation bilaterally. HEART: Regular rate and rhythm. S1 and S2 heard. ABDOMEN: Soft. Nondistended. Nontender. EXTREMITIES: Normal range of motion. No clubbing or cyanosis. Peripheral pulses intact. No lower extremity edema NEUROLOGIC: Awake and alert. Oriented x 3. ASSESSMENT: Shortness of breath Acute on chronic heart failure with reduced EF, 3035 History of bioprosthetic aortic valve replacement Chronic anticoagulation with Coumadin on an outpatient basis, unknown reason, patient denies history of A-fib Elevated troponins, flat, type II NJ secondary to oxygen supply/demand mismatch Chronic kidney disease History of CVA/TIA History of hypertension History of hyperlipidemia PLAN: Requested records from patient's primary volleyball player. However still have not received any records to determine why patient is anticoagulated on an outpatient basis with Coumadin Discontinue IV heparin Continue aspirin, atorvastatin, Lasix, and Aldactone Patient to be discharged home on Coumadin 4 mg daily Patient to follow-up postdischarge with his primary volleyball player, Dr. Tierney Nurse practitioner note has been reviewed by physician. Signing provider agrees with the documented findings, assessment, and plan of care documented by JANITOR HEAD as a scribe. Objective - Vital Signs Vital signs: Vital Signs Temp 98.1 F 03/01/25 08:00 Pulse 94 03/01/25 08:00 Resp 16 03/01/25 08:00 BP 122/81 03/01/25 08:00 Pulse Ox 96 03/01/25 08:00 FiO2 Intake & Output 02/28/25 03/01/25 03/01/25 18:59 06:59 18:59 Intake Total 225.606 138.389 4.005 Output Total 115 875 250 Balance 110.606 -736.611 -245.995 Weight 88.2 kg Intake: Intake, IV Titration 107.606 138.389 4.005 Amount Heparin Sod,Pork in 0.45% 107.606 138.389 4.005 NaCl 25,000 unit In 0.45 % NaCl 1 250ml.bag @ 11. 603 UNITS/KG/HR 10 mls/hr IV .Q24H [facility] Rx#: [id number] Oral 118 Output: Urine 115 875 250 Stool 0 0 0 Other: Voiding Method Toilet Toilet Toilet # Voids 2 1 - Labs CBC & Chem 7: 03/01/25 06:16 03/01/25 06:16 Labs: Abnormal Lab Results - Last 24 Hours (Table) 02/28/25 03/01/25 03/01/25 Range/Units 14:12 06:16 06:16 WBC 13.89 H (4.50-10.00) X 10*3/uL MCHC 31.8 L (32.0-37.0) g/dL RDW 14.9 H (11.5-14.5) % PT (10.0-12.5) sec INR (<1.2) APTT 58.6 H (22.0-30.0) sec Anion Gap 14.20 H (4.00-12.00) mmol/L BUN 47.0 H (9.0-27.0) mg/dL Creatinine 2.0 H (0.6-1.5) mg/dL Est GFR (CKD-EPI) 33 L (>=60) BUN/Creatinine Ratio 23.50 H (12.00-20.00) Ratio Glucose 128 H (70-110) mg/dL 03/01/25 Range/Units 06:16 WBC (4.50-10.00) X 10*3/uL MCHC (32.0-37.0) g/dL RDW (11.5-14.5) % PT 20.3 H (10.0-12.5) sec INR 2.0 H (<1.2) APTT 42.4 H (22.0-30.0) sec Anion Gap (4.00-12.00) mmol/L BUN (9.0-27.0) mg/dL Creatinine (0.6-1.5) mg/dL Est GFR (CKD-EPI) (>=60) BUN/Creatinine Ratio (12.00-20.00) Ratio Glucose (70-110) mg/dL
--- NOTE | 2025-03-01 13:59 | P.DS ---
Providers Date of admission: 02/26/25 19:55 Expected date of discharge: 03/01/25 Attending physician: Agusto Crespo MD Consults: 02/26/25 19:52 Consult Physician Routine Consulting Provider: [facility] Consult Reason/Comments: chf, nstemi. spoke frantz Gaitan in ER Do you want consulting provider notified?: Yes Primary care physician: Rex Baker Hospital Course: Discharge Diagnosis: Acute on chronic systolic heart failure exacerbation. Echocardiogram completed showing a reduced EF of 30 to 35% with bioprosthetic aortic valve. Patient ev aluated by cardiology and cleared from their perspective for discharge with recommendations for patient to follow-up outpatient with his primary press department manager Dr. Hines next week. Symptoms were made at obtaining patient's cardiology records from primary press department manager, however office is closed for holiday weekend. Patient charged home on cardiac medication regimen with Coumadin 4 mg daily, Aldactone 25 mg daily, losartan 25 mg daily, carvedilol 6.25 mg twice daily with meals, Lasix 40 mg daily, and atorvastatin 20 mg nightly. Patient to have repeat BMP in 3 days as well as PT/INR with results to be sent to primary PCP and primary cardiology office for follow-up and management. Elevated troponins, secondary to above Subtherapeutic INR, patient was started on heparin for bridging of Coumadin until therapeutic. INR therapeutic on discharge at 2.0. Patient discharged home on Coumadin 4 mg daily with prescription for repeat INR in 3 days with results to be sent to his PCP and primary press department manager Dr. Tierney. Hypertension Hyperlipidemia History of aortic valve replacement Chest pain, acute coronary event ruled out History of CVA Stage IIIb chronic kidney disease. Renal function on day of discharge shows BUN of 47, creatinine 2.0, and GFR of 33 with baseline creatinine of 1.9. Patient was sent with prescription for repeat BMP in 3 days with results to be sent to primary press department manager and PCP for follow-up and management. Recommend outpatient evaluation by nephrology for chronic kidney disease. Hospital Course: Patient is a very pleasant 84-year-old male with a past medical history of chronic systolic heart failure, aortic stenosis status post aortic valve replacement (echocardiogram showing bioprosthetic valve) unclear why patient is on Coumadin pending records from cardiology office, hypertension, hyperlipidemia, previous CVA, iron deficiency anemia, and CKD stage IIIb. He presented to the hospital on 02/26/2025 secondary to reports of shortness of breath. Patient was sent to ER by his PCP secondary to concerns of pulmonary edema. Upon arrival to our facility, patient underwent evaluation in the emergency department. Vital signs upon arrival show blood pressure 123/78, heart rate 92, respiratory rate 16, temp 97.9 F, and SpO2 of 98% on room air. EKG was completed showing sinus mechanism at 92 bpm with an intraventricular conduction delay and T wave abnormalities in anterior/lateral leads I, aVL, and V2. Chest x-ray negative for acute cardiopulmonary process. Labs completed and reviewed. CBC showing a low MCHC of 31.7 otherwise normal findings. BMP consistent with known CKD stage IIIb with BUN of 38, creatinine 1.78, GFR of 35. Blood glucose 116. Magnesium 2.1. Liver profile normal findings. Troponin w as elevated at 0.040 with proBNP of 2830. INR subtherapeutic at 1.8. Patient was started on heparin infusion and admitted under our services with consultation to cardiology. Troponins trended resulting at 0.040, 0.039, 0.039. Echocardiogram completed showing a reduced EF of 30 to 35% with bioprosthetic aortic valve. Patient evaluated by cardiology and cleared from their perspective for discharge with recommendations for patient to follow-up outpatient with his primary press department manager Dr. Hines next week. Symptoms were made at obtaining patient's cardiology records from primary press department manager, however office is closed for holiday weekend. Patient charged home on cardiac medication regimen with Coumadin 4 mg daily, Aldactone 25 mg daily, losartan 25 mg daily, carvedilol 6.25 mg twice daily with meals, Lasix 40 mg daily, and atorvastatin 20 mg nightly. Patient to have repeat BMP in 3 days as well as PT/INR with results to be sent to primary PCP and primary cardiology office for follow-up and management.Subtherapeutic INR, patient was started on heparin for bridging of Coumadin until therapeutic. INR therapeutic on discharge at 2.0. Patient discharged home on Coumadin 4 mg daily with prescription for repeat INR in 3 days with results to be sent to his PCP and primary press department manager Dr. Tierney.Renal function on day of discharge shows BUN of 47, creatinine 2.0, and GFR of 33 with baseline creatinine of 1.9. Patient was sent with prescription for repeat BMP in 3 days with results to be sent to primary press department manager and PCP for follow-up and management. Recommend outpatient evaluation by nephrology for chronic kidney disease. Physical exam: Vital signs reviewed and stable. General: Nontoxic, no distress and appears stated age. Derm: Skin warm and dry, normal coloration for ethnicity. Head: Atraumatic, normocephalic and symmetric. Eyes: EOM's intact, no lid lag, and anicteric sclera Mouth: no lip lesions, mucus membranes moist Cardiovascular: regular rate and rhythm with normal S1S2, systolic murmur, positive posterior tibial pulses bilaterally, and cap refill < 2 seconds. Lungs: Respirations even, regular, and unlabored on room air. Lungs slightly diminished otherwise no rhonchi, no rales, no wheezing, and no accessory muscle usage. Abdominal: soft, nontender to palpation, no guarding, no appreciable organomegaly Ext: ROM intact. No gross muscle atrophy, no edema, no contractures Neuro: Speech clear, face symmetrical and CN II-XII grossly intact with no noted focal neuro deficits Psych: Alert and oriented to person, place, time, and situation. Appropriate and pleasant affect. A total of 36 minutes of time were spent preparing this complex discharge summary. Pt was discharged on 03/01/2025 at 1:57 PM. Patient was seen independently by Nurse Practitioner. This document was prepared using [employer] dictation software. Please allow for errors in paper testing supervisor while rare they do occur. Artem Braxton NP rendered care for this patient independently, reviewed the findings and plan as documented in the note above. I did not physically speak with or examine the patient on this date. Patient Condition at Discharge: Stable Plan - Discharge Summary Discharge Rx Participant: No New Discharge Prescriptions: New Warfarin [Coumadin] 4 mg PO DAILY #60 tab Spironolactone [Aldactone] 25 mg PO DAILY 30 Days #30 tab Continue Ferrous Sulfate [Feosol] 325 mg PO Q3D Losartan [Cozaar] 25 mg PO DAILY carvediloL [Coreg] 6.25 mg PO BID-W/MEALS Furosemide [Lasix] 40 mg PO DAILY Atorvastatin [Lipitor] 20 mg PO HS Discontinued Warfarin [Coumadin] 3 mg PO DAILY@1700 Discharge Medication List Atorvastatin [Lipitor] 20 mg PO HS 02/26/25 [History] Ferrous Sulfate [Feosol] 325 mg PO Q3D 02/26/25 [History] Furosemide [Lasix] 40 mg PO DAILY 02/26/25 [History] Losartan [Cozaar] 25 mg PO DAILY 02/26/25 [History] carvediloL [Coreg] 6.25 mg PO BID-W/MEALS 02/26/25 [History] Spironolactone [Aldactone] 25 mg PO DAILY 30 Days #30 tab 03/01/25 [Rx] Warfarin [Coumadin] 4 mg PO DAILY #60 tab 03/01/25 [Rx] Follow up Appointment(s)/Referral(s): Rex Baker MD [Primary Care Provider] - 1-2 days [facility], [NON-STAFF] - As Needed Temi Tierney MD [REFERRING] - 1 Week Ambulatory/Diagnostic Orders: Basic Metabolic Panel [LAB.AMB] Time Frame: 3 Days, Location: None Selected Prothrombin Time INR [LAB.AMB] Time Frame: 3 Days, Location: None Selected Patient Instructions/Handouts: Heart Failure (DC) Activity/Diet/Wound Care/Special Instructions: Activity: As tolerated. Take breaks as needed. Diet: Heart healthy and carb consistent diet. Avoid salts, or foods with hidden salts such as canned or boxed foods and frozen dinners. Extra salt makes your heart work harder and traps the fluid in your body for longer. Special Instructions: Weigh yourself every morning after you urinate. If you gain 3 pounds overnight or more than 5 pounds in one week, call your primary physician and press department manager for guidance on your medications or they may want to see you in their office. Keep a daily log of your weights and be sure to bring with you at follow up visits with your PCP and press department manager. Take all of your medications as directed, especially your water pills. NEVER skip a dose. And remember to keep all of your doctor's appointments and follow- up as needed. Elevate your legs when you are not up moving around to help with circulation and prevent swelling. Compression stockings are also a great way to improve lower extremity circulation and prevent/improve lower extremity edema. Call your primary care provider () and press department manager (Dr. Tierney) if you notice any extra swelling in your legs, ankles, feet or abdomen, if you have a new dry cough, if your shortness of breath worsens with activity or at rest, or if you feel more fatigued. Thank you for allowing us to participate in your care, it was truly a pleasure having you for our patient!!! Discharge Disposition: HOME WITH HOME HEALTH SERVICES
[2025-03-01] MEDS ORDERED: WARFARIN 3 MG TAB PO SCH (18:00)
== END 2025-03-01 14:17 | disposition home health service (06) | DRG 280 ==
LOC: EC 15:52 → 6NMEDSUR 19:54 → OBSVTOIN 19:55 → 6NMEDSUR 20:37
PROVIDERS: ADMIT Internal Medicine; ATTEND Internal Medicine
DX: I13.0 Hypertensive heart and chronic kidney disease with heart failure and stage 1 through stage 4 chronic kidney disease, or unspecified chronic kidney disease (principal); I50.23 Acute on chronic systolic (congestive) heart failure; I21.A1 Myocardial infarction type 2; Z79.01 Long term (current) use of anticoagulants; N18.32 Chronic kidney disease, stage 3b; Z95.3 Presence of xenogenic heart valve; E78.5 Hyperlipidemia, unspecified; I35.0 Nonrheumatic aortic (valve) stenosis; R79.1 Abnormal coagulation profile; I25.10 Atherosclerotic heart disease of native coronary artery without angina pectoris; Z86.73 Personal history of transient ischemic attack (TIA), and cerebral infarction without residual deficits; Z79.899 Other long term (current) drug therapy; Z87.891 Personal history of nicotine dependence; Z79.82 Long term (current) use of aspirin
CPT/HCPCS: 36415; 71046; 80048; 80053; 83735; 83880; 84484; 85025; 85027; 85610; 85730; 93005; 93306; 96365; 96366; 96375; 96376; 99291

== ENCOUNTER → 2025-05-07 | Outpatient (CLI) | payer MEDICARE ==
--- NOTE | 2025-05-07 10:46 | US ---
EXAMINATION TYPE: US kidneys/renal and bladder DATE OF EXAM: 05/07/2025 COMPARISON: NONE CLINICAL INDICATION: Male, 85 years old with history of N18.30 CHRONIC KIDNEY DISEASE, STAGE 3 UNSPEC IFIED; TECHNIQUE: Grayscale imaging of the bilateral kidneys and urinary bladder: FINDINGS: EXAM MEASUREMENTS: Right Kidney: 8.8x4.3x4.7 cm Left Kidney: 10.8x5.3x3.9 cm Slightly limited due to overlying gas Right Kidney: ?echogenic foci seen: 0.9cm Left Kidney: cystic area seen: 6.4x6.1x6.0cm Bladder: wnl Bilateral Jets seen: Yes IMPRESSION: 1. Nonobstructing right-sided nephrolithiasis. 2. Left renal cyst. [facility], , 05/07/2025 10:44 AM
== END | disposition home or self-care (01) ==
LOC: RADUSWWP 10:18
PROVIDERS: ATTEND Internal Medicine Nephrology
DX: N20.0 Calculus of kidney (principal); N28.1 Cyst of kidney, acquired; N18.30 Chronic kidney disease, stage 3 unspecified
CPT/HCPCS: 76770